=== PATIENT | male | born 1960 | race Caucasian/White ===

== ENCOUNTER → 2019-03-23 15:13 | Outpatient (BNVA) | payer MEDICARE, SELFPAY | PROVIDERS: Family Provider Nurse Practitioner; PCP Nurse Practitioner; Visit Provider Nurse Practitioner | DX: E11.8 Type 2 diabetes mellitus with unspecified complications (principal); J45.909 Unspecified asthma, uncomplicated; I10 Essential (primary) hypertension; E55.9 Vitamin D deficiency, unspecified; F41.9 Anxiety disorder, unspecified; N52.9 Male erectile dysfunction, unspecified; Z79.4 Long term (current) use of insulin | CPT/HCPCS: 80053; 81003; 83036 ==

== ENCOUNTER → 2019-04-05 09:30 | Outpatient (BNVA) | payer MEDICARE, SELFPAY | PROVIDERS: Family Provider Nurse Practitioner; PCP Nurse Practitioner; Visit Provider Nurse Practitioner | DX: J45.909 Unspecified asthma, uncomplicated (principal) | CPT/HCPCS: 71046 ==

== ENCOUNTER → 2019-07-03 12:03 | Outpatient (BNVA) | payer MEDICARE, SELFPAY | PROVIDERS: Family Provider Nurse Practitioner; PCP Nurse Practitioner; Visit Provider Nurse Practitioner | DX: E11.8 Type 2 diabetes mellitus with unspecified complications (principal); Z79.4 Long term (current) use of insulin; I10 Essential (primary) hypertension; F41.9 Anxiety disorder, unspecified; N39.9 Disorder of urinary system, unspecified; Z12.5 Encounter for screening for malignant neoplasm of prostate; R79.89 Other specified abnormal findings of blood chemistry; N52.1 Erectile dysfunction due to diseases classified elsewhere | CPT/HCPCS: 80053; 80061; 81000; 81001; 82044; 83036; 83721; 84153 ==

== ENCOUNTER → 2019-08-25 11:19 | Outpatient (BNVA) | payer MEDICARE, SELFPAY | PROVIDERS: Family Provider Nurse Practitioner; PCP Nurse Practitioner; Visit Provider Nurse Practitioner | DX: F41.9 Anxiety disorder, unspecified (principal); E11.8 Type 2 diabetes mellitus with unspecified complications; I10 Essential (primary) hypertension; Z79.4 Long term (current) use of insulin; K21.9 Gastro-esophageal reflux disease without esophagitis; H65.90 Unspecified nonsuppurative otitis media, unspecified ear | CPT/HCPCS: 80053; 80061; 81000; 83036 ==

== ENCOUNTER → 2019-11-22 10:08 | Outpatient (BNVA) | payer MEDICARE, SELFPAY | PROVIDERS: Family Provider Nurse Practitioner; PCP Nurse Practitioner; Visit Provider Nurse Practitioner | DX: E11.69 Type 2 diabetes mellitus with other specified complication (principal); F41.9 Anxiety disorder, unspecified; Z79.4 Long term (current) use of insulin; E55.9 Vitamin D deficiency, unspecified | CPT/HCPCS: 80053; 80061; 81000; 83036 ==

== ENCOUNTER 2019-11-24 16:19 | Inpatient (IN) | payer MEDICARE, SELFPAY ==
[2019-11-24] VITALS (7 sets, daily range): BP systolic 95–133; BP diastolic 52–74; PULSE 65–102; RESP 16–95; TEMP 36.5–37.1; O2SAT 92–98; BMI 36.9
--- NOTE | 2019-11-24 16:41 | XR_ITS ---
WS: [id number] Portable AP upright chest, 11/24/2019 Clinical Data: chest pain Comparison: PA and lateral chest, 04/05/2019 Findings: No nodules, masses or effusions are seen. The heart is normal. The pulmonary vascularity is not increased. No pneumonia or pneumothorax is present. There are monitor leads on the chest wall. XR/XR chest 1V portable [id number] Impression: Negative chest.
--- NOTE | 2019-11-24 16:41 | ECG_ITS ---
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 Measurements Intervals [place] Rate: 98 P: 71 [place]: 182 QRS: 31 QRSD: 82 T: 30 QT: 335 QTc: 428 Interpretive Statements SINUS RHYTHM Compared to ECG 04/18/2015 20:10:11 T-wave abnormality no longer present Electronically Signed On 11-25-2019 16:59:48 CDT by Laurie Norwood M.D. [id number]
[2019-11-24 16:55] LABS: Basophils % 0.3 %; Eosinophils # 0.1 10^3/uL (0.0-0.8); Eosinophils % 0.7 %; Hematocrit 54.6 % (42.0-52.0); Hemoglobin 17.8 g/dL (11.7-16.6); Lymphocytes # 3.2 10^3/uL (0.8-4.8); Mean Corpuscular HGB Conc 32.6 g/dL (30.0-36.0); Mean Corpuscular Hemoglobin 30.2 pg (28.0-34.0); Mean Corpuscular Volume 92.5 fL (80-94); Mean Platelet Volume 12.1 fL (7.4-10.4); Neutrophils # 9.98 10^3/uL (1.8-7.7); Neutrophils % 69.7 %; Nucleated Red Blood Cells % 0 %; Platelet Count 173 10^3/cmm (130-400); Red Cell Distribution Width 12.8 % (12.1-15.1); White Blood Count 14.3 10^3/uL (4.0-10.0)
[2019-11-24 17:30] LABS: Alanine Aminotransferase 44 U/L (0-41); Albumin Level 4.5 g/dL (3.5-5.2); Alkaline Phosphatase 97 IU/L (40-130); Anion Gap 19.1 (5-19); Aspartate Amino Transferase 69 U/L (0-40); Blood Urea Nitrogen 22 mg/dL (6-20); Calcium 9.3 mg/dL (8.5-10.5); Carbon Dioxide 18 mmol/L (22-29); Chloride 102 mmol/L (98-107); Globulin 2.9 g/dL (1.3-4.6); Glomerular Filtration Rate 51.9 mL/min (90-130); Glucose 202 mg/dL (65-115); Lipase 59 U/L (13-60); NT Pro B Type Natriuretic Pept 262 pg/mL (0-125); Osmolality Calculated 289 mOsm/kg (285-295); Potassium 4.1 mmol/L (3.5-5.1); Sodium 135 mmol/L (136-145); Total Bilirubin 0.5 mg/dL (0.15-1.2); Total Protein 7.4 g/dL (6.6-8.7)
[2019-11-24 18:09] LABS: Troponin(5th) Baseline 247 ng/L (0-15)
[2019-11-24 18:29] LABS: Add Urine Microscopic? NO
--- NOTE | 2019-11-24 18:41 | ECG_ITS ---
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 Measurements Intervals [place] Rate: 81 P: 74 [place]: 191 QRS: 36 QRSD: 93 T: 62 QT: 354 QTc: 412 Interpretive Statements SINUS RHYTHM Compared to ECG 11/24/2019 16:21:34 No significant changes Electronically Signed On 11-25-2019 17:03:01 CDT by Laurie Norwood M.D. [id number]
[2019-11-24 18:44] LABS: Bilirubin Urine Neg (Negative); Blood Urine Neg (Negative); Glucose Urine UA 4+ (Normal); Ketones Urine Negative (Negative); Leukocyte Esterase Urine Negative (Negative); Nitrate Urine Negative (Negative); Protein Urine Neg (Negative); Urine Appearance Clear (CLEAR); Urine Color Yellow (Yellow); Urobilinogen Urine Norm (Negative); pH Urine 5 (5-7)
[2019-11-24] MEDS: enoxaparin 120 mg/0.8 mL Syringe 110 MG SUBCUT (19:23)
[2019-11-24 19:50] LABS: Troponin 5 2HR 276.4 ng/L (0-15); Troponin 5 2HR Delta 29.4 ABS# (0-10)
--- NOTE | 2019-11-24 20:19 | P.HP_ITS ---
Providers/Chief Complaint Primary Care Provider: SURAJ Otoole Chief Complaint: CP History of Present Illness Vitaliy Mireles is a 59 year old male past medical history of hypertension, diabetes, came in with chief complaint of, substernal squeezeing chest pain, started yesterday night, worsened with exertion, radiating to left arm, relieved with rest, associated with nausea and diaphoresis. He decided to come to the as the chest pain was bothering him and he felt as if he is having a heart attack.On review of system he denies any fever cough, shortness of breath, headache, blurred vision, abdominal pain, constipation, diarrhea, urinary complaint. Baseline troponin: 247, 2-hour: 276 , with a delta of: 29.4 Baseline EKG: Normal sinus rhythm. X-ray chest: No nodules, masses or effusions are seen. The heart is normal. The pulmonary vascularity is not increased. No pneumonia or pneumothorax is present. Review of Systems General: Reports: 10 or more systems reviewed and unremarkable except in HPI and below Const: Denies: fever(s), chills, body aches, change in appetite or diaphoresis Card: Denies: palpitations, edema, swelling of feet/ankles, dyspnea on exertion, orthopnea or leg pain with exertion Resp: Denies: productive cough, wheezing or pain on inspiration GI: Denies: abdominal pain, nausea, vomiting, diarrhea or constipation : Denies: flank pain or difficulty urinating Musc: Denies: back pain, extremity pain or extremity swelling Neuro: Denies: headache(s), difficulty walking or confusion Medications/Allergies Home Medications Medication Instructions Recorded Confirmed Last Taken Type multivitamin 1 tab PO DAILY 07/03/19 11/24/19 11/24/19 History canagliflozin 100 mg tablet 100 mg PO QAM #90 tab 08/25/19 11/24/19 11/24/19 Rx testosterone cypionate 200 mg/mL 200 mg IM .weekly #10 ml 10/05/19 11/24/19 Unknown Rx intramuscular oil doxepin 25 mg capsule 25 mg PO TID #90 cap 11/22/19 11/24/19 11/24/19 Rx meclizine 25 mg tablet 25 mg PO DAILY #90 tab 11/22/19 11/24/19 11/24/19 Rx sucralfate 1 gram tablet 1 gm PO BID #180 tab 11/22/19 11/24/19 11/24/19 Rx venlafaxine 150 mg 150 mg PO QAM #90 cap 11/22/19 11/24/19 11/24/19 Rx capsule,extended release 24 hr Lidoderm See Rx Instructions .ROUTE .COMPLEX 11/24/19 11/24/19 Unknown History Lipitor 40 mg PO DAILY 11/24/19 11/24/19 11/24/19 History Viagra 100 mg PO DAILY PRN 11/24/19 11/24/19 Unknown History aspirin 162 mg PO DAILY 11/24/19 11/24/19 11/24/19 History candesartan 32 mg PO DAILY 11/24/19 11/24/19 11/24/19 History insulin degludec [Tresiba 20 unit SUBCUT DAILY 11/24/19 11/24/19 11/24/19 History FlexTouch U-100] metformin 2,000 mg PO DAILY 11/24/19 11/24/19 11/24/19 History Allergies Allergy/AdvReac Type Severity Reaction Status Date / Time No Known Allergies Allergy Verified 11/24/19 17:06 PFSH Acute PFSH: Medical History Anxiety Asthmatic bronchitis Controlled type 2 diabetes mellitus with complication, with long-term current use of insulin Gastric reflux Hypertension Mixed hyperlipidemia Vitamin D deficiency Surgical History History of arthroscopic surgery of shoulder right 3 surgeries left 1 History of tonsillectomy and adenoidectomy Status post routine circumcision Family History Mother , at age 83 Diabetes Hypertension Heart disease Brother Diabetes Father , at age 89 Sepsis Denies family history of Clotting disorder Psychiatric illness Chronic kidney disease (CKD) Social History Smoking and tobacco status: former smoker Smoking risk assessment/counseling performed?: No Alcohol intake: current Alcohol intake frequency: holidays/special occasions only Desire information about alcohol rehabilitation?: No Counseling given: No Desire information about substance/drug rehabilitation?: No Counseling given: No Adopted: No Caregiver/support person: No Lives independently: Yes Household members: spouse Housing: House Marital status: Number of children: 2 Number of grandchildren: 9 service: No Current occupational status: disabled Pets and animals: Yes Pets & animals: dog(s) History of recent travel: No Sexually active: Yes Current gender identity: Male Vitals/I&O/Wt Last Vital Signs Temp 98.8 F 11/24/19 16:30 Pulse 81 11/24/19 19:26 Resp 17 11/24/19 19:26 BP 133/64 11/24/19 19:26 Pulse Ox 94 11/24/19 19:26 Weight last 48 hrs Weight 113.398 kg Physical Exam Const: COMMON NORMALS: patient oriented x3 HENMT: COMMON NORMALS: normocephalic, atraumatic, hearing grossly normal bilaterally and external ears normal HEAD & SCALP: normocephalic and atraumatic EXTERNAL EAR: Yes external ears normal Eye: COMMON NORMALS: no scleral icterus GENERAL EYE: appearance normal, both eyes and all related structures Chest: COMMONS NORMALS: normal inspection of the chest and normal palpation of entire chest wall CHEST: Yes Symmetrical chest wall rise Resp: COMMON NORMALS: normal respiratory effort, No retractions, No use of accessory muscles and clear to auscultation bilaterally EFFORT & INSPECTION: Yes symmetric chest movement AUSCULTATION: clear to auscultation bilaterally Cardio: COMMON NORMALS: regular rate, regular rhythm, S1 normal heart sound present, S2 normal heart sound present, No gallops present (Cardio), No murmurs present (Cardio), No rub (Cardio) and Peripheral pulses 2+ throughout RATE: regular rate RHYTHM: regular rhythm HEART SOUNDS: S1 normal heart sound present and S2 normal heart sound present PERIPHERAL PULSES: Peripheral puls es 2+ throughout GI: COMMON NORMALS: Normal to inspection, nondistended, normoactive bowel sounds present, Soft to palpation, non-tender, No hepatosplenomegaly present and no masses AUSCULTATION: Yes normoactive bowel sounds PALPATION: Yes Soft to palpation and Yes No hepatosplenomegaly present RECTAL EXAM: Yes deferred Extremity: COMMON NORMALS: no clubbing, cyanosis or edema and no pedal edema Neuro: COMMON NORMALS: patient oriented x3 Data : 11/24/19 16:40 11/24/19 16:40 A&P Assessment and plan (1) NSTEMI (non-ST elevated myocardial infarction): 59 year old male past medical history of hypertension, diabetes, came in with chief complaint of, substernal squeezeing chest pain, started yesterday night, worsened with exertion, radiating to left arm, relieved with rest, associated with nausea and diaphoresis. He decided to come to the as the chest pain was bothering him and he felt as if he is having a heart attack.On review of system he denies any fever cough, shortness of breath, headache, blurred vision, abdominal pain, constipation, diarrhea, urinary complaint. Baseline troponin: 247, 2-hour: 276 , with a delta of: 29.4 Baseline EKG: Normal sinus rhythm. X-ray chest: No nodules, masses or effusions are seen. The heart is normal. The pulmonary vascularity is not increased. No pneumonia or pneumothorax is present. Aspirin 325 mg x1 dose, thereafter aspirin 81 mg oral daily Plavix 300 Mg x1 dose Lipitor 80 mg oral daily Carvedilol 6.25 mg q12 h oral daily Serial EKG 2D echo Trend troponin N.p.o. Cardiology: Consult Possible cath in a.m. Status: Acute (2) Hypertension: Patient is on candesartan at home. We will hold that anticipating cath. Will start on carvedilol 6.25 every 12 hours daily. Status: Chronic Qualifiers: Hypertension type: essential hypertension Qualified Code(s): I10 - Essential (primary) hypertension (3) Controlled type 2 diabetes mellitus with complication, with long-term current use of insulin: Low-dose sliding scale insulin. Monitor fingerstick glucose. HbA1c. 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
--- NOTE | 2019-11-24 20:34 | PC.NURSE ---
fur tanner alrming, pt check reveals pt lying supine, face flushed, denying any pain or discomfort. Pt and does state pt has not eaten since breakfast and is diabetic. accucheck performed. BS 152. vo from hospitalist pt to remain NPO, start D5 1/2 and loading dose of ASA and plavix
--- NOTE | 2019-11-24 20:35 | USCV_ITS ---
Vitaliy Mireles Age: 59 Gender: M : 1960 Exam Date: 11/24/2019 21:22 Ordering Phys: Usman Davenport MD Technologist: Angela Belcher Exam Location: [facility] Indication: nstemi BP: 121 / 48 HR: 76 Rhythm: Sinus Technical Quality: Adequate MEASUREMENTS (Male / Female) Normal Values 2D ECHO LV Diastolic Diameter PLAX 3.5 cm 4.2 - 5.9 / 3.9 - 5.3 cm LV Systolic Diameter PLAX 2.6 cm LV Chamber Size 4.1 cm IVS Diastolic Thickness 1.4 cm 0.6 - 1.0 / 0.6 - 0.9 cm IVS Systolic Thickness 1.7 cm LVPW Diastolic Thickness 1.5 cm 0.6 - 1.0 / 0.6 - 0.9 cm LVPW Systolic Thickness 1.5 cm RV Chamber Size 3.8 cm LVOT Diameter 2.1 cm LV Ejection Fraction 2D Teich 49.6 % LV Ejection Fraction MOD 2C 40.9 % LV Ejection Fraction 2C AL 38.4 % LA Diameter 3.9 cm LA Width 3.5 cm LA Height 4.6 cm RA Width 3.7 cm RA Height 4.3 cm Aorta at Sinotubular Diameter 3.6 cm M-MODE LV Diastolic Diameter MM 5.6 cm 4.2 - 5.9 / 3.9 - 5.3 cm LV Systolic Diameter MM 3.8 cm LV Ejection Fraction MM Teich 60.4 % IVS Diastolic Thickness MM 1.1 cm 0.6 - 1.0 / 0.6 - 0.9 cm IVS Systolic Thickness MM 1.9 cm LVPW Diastolic Thickness MM 1.6 cm 0.6 - 1.0 / 0.6 - 0.9 cm LVPW Systolic Thickness MM 2.7 cm RV Diastolic Diameter MM 1.3 cm Aortic Annulus Diameter 3.4 cm LA Ao Ratio MM 1.1 MV E Point Septal Separation 0.5 cm DOPPLER AV Peak Velocity 129.0 cm/s LVOT Peak Velocity 76.0 cm/s AV Area Cont Eq vti 2.3 cm squared AV Area Cont Eq pk 2.0 cm squared MV Area PHT 6.3 cm squared Mitral E to A Ratio 1.0 MV E' Velocity 8.0 cm/s Mitral E to MV E' Ratio 10.3 Mitral E to LV E' Lateral Ratio 9.1 Mitral E to LV E' Septal Ratio 12.1 TR Peak Velocity 84.2 cm/s TR Peak Gradient 2.8 mmHg TR Mean Velocity 53.0 cm/s TR Mean Gradient 1.3 mmHg TR Velocity Time Integral 17.2 cm TV Peak E Velocity 68.0 cm/s Right Atrial Pressure 3.0 mmHg Pulmonary Artery Systolic Pressu 5.8 mmHg PV Peak Velocity 50.0 cm/s RV Acceleration Time 0.1 s RV Ejection Time 0.2 s RV AcT/ET 1.0 FINDINGS Left Ventricle Normal left ventricular size and systolic function, EF 60 %. No regional wall motion abnormalities. Right Ventricle The right ventricle is normal in size and function. Right Atrium The right atrium is normal in size. Left Atrium The left atrium is normal in size. Mitral Valve Thickened mitral valve. Aortic Valve No gross abnormalities noted Tricuspid Valve No gross abnormalities noted. Pulmonic Valve Not visualized well Pericardium Normal pericardium without effusion. Aorta Normal ascending aorta dimension. CONCLUSIONS Normal left ventricular size and systolic function, EF 60 %. No regional wall motion abnormalities. Thickened mitral valve. There is no pericardial effusion. There are no intracardiac masses. Technically somewhat difficult study because of poor apical window No previous study is available for comparison. Dr Laurie Norwood MD FACC (Electronically Signed) Final Date: 25 November 2019 09:17 S
[2019-11-24 20:45] LABS: Glucose Point of Care 152 mg/dL (70-110)
[2019-11-24] MEDS: aspirin 325 mg EC Tablet PO (21:57)
[2019-11-24] MEDS: carvedilol 6.25 mg Tablet PO (22:03)
[2019-11-24] MEDS: clopidogrel 300 mg Tablet PO (22:03)
[2019-11-24] MEDS: atorvastatin 40 mg Tablet 80 MG PO (22:03)
--- NOTE | 2019-11-24 22:04 | W.ED.CHESTPA ---
HPI - Chest Pain General: Chief Complaint: Chest Pain Stated Complaint: CP Time Seen by Provider: 11/24/19 16:20 Source: patient Mode of arrival: EMS Limitations: no limitations History of Present Illness: HPI narrative: 59-year-old gentleman with no prior cardiac history presents to the emergency department with complaints of left-sided chest pain that started sometime last night. Pain gradually worsened as the day progressed and especially worsened on exertion. Because the pain was worsening and he was affecting his functioning he called an ambulance and was given nitroglycerin and aspirin. Pain resolved after 3 nitroglycerin tablets. He is here to be evaluated. He is currently chest pain-free MD complaint: chest pain Onset (ago): hour(s) (15) Timing of current episode: constant and increasing Prior episodes: No Onset: during rest and awoke with symptoms Pain location: left chest Pain radiation: left arm Severity: severe Quality: heaviness Relieving factors: nitroglycerin Exacerbating factors: exertion Associated symptoms: Reports diaphoresis, dyspnea and nausea; Deny abdominal pain, fever(s), leg edema, palpitations, sense of impending doom, syncope or vomiting Treatment prior to arrival: aspirin and nitroglycerin Review of Systems General: Reports: 10 or more systems reviewed and unremarkable except in HPI and below Const: Reports: diaphoresis; Denies: fever(s) Eyes: Denies: change in vision or blurry vision ENMT: Denies: throat pain, enlarged tonsils, odynophagia, hoarseness, mouth pain or swelling of lips/tongue Card: Denies: palpitations or syncope Resp: Reports: dyspnea GI: Reports: nausea; Denies: abdominal pain or vomiting : Denies: flank pain, dysuria, urinary frequency, urinary urgency or urinary hesitancy Musc: Denies: neck pain, back pain or extremity swelling Skin/Breast: Denies: rash, pruritus or erythema Neuro: Denies: headache(s), numbness in extremities or weakness in extremities Endo: Denies: polyuria, polydipsia or tired all the time PFS ED PFSH: Medical History Anxiety Asthmatic bronchitis Controlled type 2 diabetes mellitus with complication, with long-term current use of insulin Gastric reflux Hypertension Mixed hyperlipidemia Vitamin D deficiency Surgical History History of arthroscopic surgery of shoulder right 3 surgeries left 1 History of tonsillectomy and adenoidectomy Status post routine circumcision Family History Mother , at age 83 Diabetes Hypertension Heart disease Brother Diabetes Father , at age 89 Sepsis Denies family history of Clotting disorder Psychiatric illness Chronic kidney disease (CKD) Social History Smoking and tobacco status: former smoker Smoking risk assessment/counseling performed?: No Alcohol intake: current Alcohol intake frequency: holidays/special occasions only Desire information about alcohol rehabilitation?: No Counseling given: No Desire information about substance/drug rehabilitation?: No Counseling given: No Adopted: No Caregiver/support person: No Lives independently: Yes Household members: spouse Housing: House Marital status: Number of children: 2 Number of grandchildren: 9 service: No Current occupational status: disabled Pets and animals: Yes Pets & animals: dog(s) History of recent travel: No Sexually active: Yes Current gender identity: Male Physical Exam Const: COMMON NORMALS: no acute distress, average body habitus, patient oriented x3, no limitations, healthy appearing, alert and well nourished HENMT: COMMON NORMALS: normocephalic, atraumatic and moist oral mucous membranes HEAD & SCALP: normocephalic and atraumatic Eye: COMMON NORMALS: Equal, round and reactive pupils present, EOMs intact bilaterally, conjunctivae normal and no scleral icterus CONJUNCTIVA: Yes conjunctivae normal PUPIL: Yes Equal, round and reactive pupils present Neck/C-Spine: COMMON NORMALS: no meningeal signs and no JVD Resp: COMMON NORMALS: normal respiratory effort, No retractions, No use of accessory muscles, clear to auscultation bilaterally and percussion normal AUSCULTATION: clear to auscultation bilaterally PERCUSSION: percussion normal Cardio: COMMON NORMALS: no JVD, regular rate, regular rhythm, S1 normal heart sound present, S2 normal heart sound present, No gallops present (Cardio), No clicks present (Cardio), No murmurs present (Cardio), No rub (Cardio) and Peripheral pulses 2+ throughout RATE: regular rate RHYTHM: regular rhythm HEART SOUNDS: S1 normal heart sound present and S2 normal heart sound present PERIPHERAL PULSES: Peripheral pulses 2+ throughout GI: COMMON NORMALS: Normal to inspection, nondistended, normoactive bowel sounds present, Soft to palpation, non-tender, No hepatosplenomegaly present, no masses and no bruits PALPATION: Yes Soft to palpation and Yes No hepatosplenomegaly present Extremity: COMMON NORMALS: normal to inspection, full ROM, capillary refill normal, no calf tenderness and no pedal edema Neuro: COMMON NORMALS: patient oriented x3 SENSORIUM/ORIENTATION: Yes alert MENINGEAL SIGNS: Yes no meningeal signs Skin: COMMON NORMALS: no rashes or lesions noted, no wounds, turgor normal, no jaundice, no petechiae and no mottling GENERAL SKIN EXAM: no rashes or lesions noted and turgor normal Course ED course: Patient with clinical features of a non-STEMI. Patient remained chest pain-free throughout his ED stay. Baseline troponin was critically elevated and the also has a significant 2-hour delta. He is given a dose of subcutaneous enoxaparin and admitted to the cardiac stepdown unit for further evaluation and management. Consultations: Consultation #1: , hospitalist. He kindly accepted the patient to his service. Time: 19:20 Vital Signs: Vital signs: Vital Signs Temperature 98.8 F 11/24/19 16:30 Pulse Rate 77 11/24/19 20:32 Respiratory Rate 18 11/24/19 20:32 Blood Pressure 125/74 11/24/19 20:32 Pulse Oximetry 92 11/24/19 20:32 MDM - Chest Pain MDM Narrative: Medical decision making narrative: 59-year-old gentleman with a non-STEMI. Vital signs stable throughout his ED stay. He was chest pain-free throughout his ED stay. He was given a dose of subcutaneous Lovenox 1 mg/kg and admitted to the cardiac stepdown unit for further evaluation and management Medical Records: Attestation: I reviewed the patient's medical records. Lab Data: Attestation: I reviewed the patient's lab results. Labs: Lab Results 11/24/19 11/24/19 11/24/19 Range/Units 16:40 16:40 16:40 WBC 14.3 H (4.0-10.0) 10^3/ uL RBC 5.90 H (4.1-5.3) 10^6/u L Hgb 17.8 H (11.7-16.6) g/dL Hct 54.6 H (42.0-52.0) % MCV 92.5 (80-94) fL MCH 30.2 (28.0-34.0) pg MCHC 32.6 (30.0-36.0) g/dL RDW 12.8 (12.1-15.1) % Plt Count 173 (130-400) 10^3/c mm MPV 12.1 H (7.4-10.4) fL Neut % (Auto) 69.7 % Lymph % (Auto) 22.0 % [place] % (Auto) 7.0 % Eos % (Auto) 0.7 % Baso % (Auto) 0.3 % Neut # (Auto) 9.98 H (1.8-7.7) 10^3/u L Lymph # (Auto) 3.2 (0.8-4.8) 10^3/u L [place] # (Auto) 1.0 H (0.2-0.9) 10^3/u L Eos # (Auto) 0.1 (0.0-0.8) 10^3/u L Baso # (Auto) 0.0 (0.0-0.1) 10^3/u L Nucleated RBC % (a uto) 0 % Nucleated RBCs # 0.0 /100WBC Sodium 135 L (136-145) mmol/L Potassium 4.1 (3.5-5.1) mmol/L Chloride 102 (98-107) mmol/L Carbon Dioxide 18 L (22-29) mmol/L Anion Gap 19.1 H (5-19) BUN 22 H (6-20) mg/dL Creatinine 1.4 H (0.7-1.2) mg/dL GFR Calculation 51.9 L (90-130) mL/min Glucose 202 H (65-115) mg/dL Calculated Osmolal ity 289 (285-295) mOsm/k g Calcium 9.3 (8.5-10.5) mg/dL Total Bilirubin 0.5 (0.15-1.2) mg/dL AST 69 H (0-40) U/L ALT 44 H (0-41) U/L Alkaline Phosphata se 97 (40-130) IU/L Troponin T Baselin e 247 H* (0-15) ng/L Troponin T 120 Min [place] (0-15) ng/L Delta Troponin T (0-10) ABS# NT-Pro-B Natriuret Pep 262 H (0-125) pg/mL Total Protein 7.4 (6.6-8.7) g/dL Albumin 4.5 (3.5-5.2) g/dL Globulin 2.9 (1.3-4.6) g/dL Lipase 59 (13-60) U/L Urine Color (Yellow) Urine Appearance (CLEAR) Urine pH (5-7) Ur Specific Gravit y (1.005-1.030) Urine Protein (Negative) Urine Glucose (UA) (Normal) Urine Ketones (Negative) Urine Blood (Negative) Urine Nitrate (Negative) Urine Bilirubin (Negative) Urine Urobilinogen (Negative) mg/dL Ur Leukocyte [place] (Negative) 11/24/19 11/24/19 Range/Units 18:09 18:44 WBC (4.0-10.0) 10^3/ uL RBC (4.1-5.3) 10^6/u L Hgb (11.7-16.6) g/dL Hct (42.0-52.0) % MCV (80-94) fL MCH (28.0-34.0) pg MCHC (30.0-36.0) g/dL RDW (12.1-15.1) % Plt Count (130-400) 10^3/c mm MPV (7.4-10.4) fL Neut % (Auto) % Lymph % (Auto) % [place] % (Auto) % Eos % (Auto) % Baso % (Auto) % Neut # (Auto) (1.8-7.7) 10^3/u L Lymph # (Auto) (0.8-4.8) 10^3/u L [place] # (Auto) (0.2-0.9) 10^3/u L Eos # (Auto) (0.0-0.8) 10^3/u L Baso # (Auto) (0.0-0.1) 10^3/u L Nucleated RBC % (a uto) % Nucleated RBCs # /100WBC Sodium (136-145) mmol/L Potassium (3.5-5.1) mmol/L Chloride (98-107) mmol/L Carbon Dioxide (22-29) mmol/L Anion Gap (5-19) BUN (6-20) mg/dL Creatinine (0.7-1.2) mg/dL GFR Calculation (90-130) mL/min Glucose (65-115) mg/dL Calculated Osmolal ity (285-295) mOsm/k g Calcium (8.5-10.5) mg/dL Total Bilirubin (0.15-1.2) mg/dL AST (0-40) U/L ALT (0-41) U/L Alkaline Phosphata se (40-130) IU/L Troponin T Baselin e (0-15) ng/L Troponin T 120 Min [place] 276.4 H (0-15) ng/L Delta Troponin T 29.4 H* (0-10) ABS# NT-Pro-B Natriuret Pep (0-125) pg/mL Total Protein (6.6-8.7) g/dL Albumin (3.5-5.2) g/dL Globulin (1.3-4.6) g/dL Lipase (13-60) U/L Urine Color Yellow (Yellow) Urine Appearance Clear (CLEAR) Urine pH 5 (5-7) Ur Specific Gravit y 1.020 (1.005-1.030) Urine Protein Neg (Negative) Urine Glucose (UA) 4+ H (Normal) Urine Ketones Negative (Negative) Urine Blood Neg (Negative) Urine Nitrate Negative (Negative) Urine Bilirubin Neg (Negative) Urine Urobilinogen Norm (Negative) mg/dL Ur Leukocyte [place] Negative (Negative) Imaging Data^: CXR: Radiologist's impression: [address] [address] XRay Report Signed Patient: Vitaliy Mireles #: [id number] : 1960Acct#:[id number] Age/Sex: 59 / MADM Date: 11/24/19 Loc: ERRoom/Bed: Attending Dr: Ordering Provider/Ordering MD: Kenneth Hernandez [place] [facility] [place]: 11/24/19 Procedure(s): XR chest 1V portable [id number] Accession Number(s): [id number] Report Number: [id number] WS: [id number] Portable AP upright chest, 11/24/2019 Clinical Data: chest pain Comparison: PA and lateral chest, 04/05/2019 Findings: No nodules, masses or effusions are seen. The heart is normal. The pulmonary vascularity is not increased. No pneumonia or pneumothorax is present. There are monitor leads on the chest wall. XR/XR chest 1V portable [id number] Impression: Negative chest. Dictated By:Andria Gray MD Signed By:Andria Gray MDSigned Date/Time:11/24/191650 DD/ 49 EKG Data^: EKG 1: Attestation: I personally reviewed and interpreted this EKG as follows: EKG interpretation date: 11/24/19 EKG interpretation time: 16:21 Prior EKG tracings: not available for review Interpretation: Normal sinus rhythm. Heart rate [address] changes. No STEMI. EKG 2: Attestation: I personally reviewed and interpreted this EKG as follows: EKG interpretation date: 11/24/19 EKG interpretation time: 18:35 Prior EKG tracings: available for review Interpretation: Normal sinus rhythm. Heart rate [address] changes. No STEMI. EKG 3: Attestation: I personally reviewed and interpreted this EKG as follows: EKG interpretation date: 11/24/19 EKG interpretation time: 20:20 Prior EKG tracings: available for review Interpretation: Unchanged from earlier EKGs. Heart rate 86 bpm. Normal sinus rhythm. No ST changes Discharge Plan Discharge Patient Disposition: Admitted As Inpatient Admit Provider: Hari Modi Clinical Impression: NSTEMI (non-ST elevated myocardial infarction) Condition: Stable Coding Level of Care Code ED Mathematics Professor for Cheli Davalos
--- NOTE | 2019-11-24 22:41 | ECG_ITS ---
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 Measurements Intervals [place] Rate: 86 P: 67 VA: 185 QRS: 35 QRSD: 92 T: 67 QT: 342 QTc: 411 Interpretive Statements SINUS RHYTHM Compared to ECG 11/24/2019 18:35:24 No significant changes Electronically Signed On 11-25-2019 17:03:14 CDT by Laurie Norwood M.D. [id number]
[2019-11-24 23:08] LABS: Troponin 5 6HR 338.9 ng/L (0-15); Troponin 5 6HR Delta 91.9 ng/L (0-12)
[2019-11-25] VITALS (57 sets, daily range): BP systolic 100–142; BP diastolic 65–91; PULSE 60–88; RESP 18–22; TEMP 36.8; O2SAT 90–99
--- NOTE | 2019-11-25 00:52 | PC.NURSE ---
Patient oxygen saturating 86 to 87% on room air while sleeping. Patient put on 2L via nasal cannula and oxygen came up to 94%.
[2019-11-25 04:09] LABS: Basophils % 0.3 %; Eosinophils # 0.2 10^3/uL (0.0-0.8); Eosinophils % 1.4 %; Hematocrit 53.7 % (42.0-52.0); Hemoglobin 17.1 g/dL (11.7-16.6); Lymphocytes # 3.8 10^3/uL (0.8-4.8); Lymphocytes % 29.6 %; Mean Corpuscular HGB Conc 31.8 g/dL (30.0-36.0); Mean Corpuscular Hemoglobin 30.2 pg (28.0-34.0); Mean Corpuscular Volume 94.7 fL (80-94); Mean Platelet Volume 11.9 fL (7.4-10.4); Monocytes % 7.8 %; Neutrophils # 7.68 10^3/uL (1.8-7.7); Neutrophils % 60.5 %; Nucleated Red Blood Cells % 0 %; Platelet Count 154 10^3/cmm (130-400); Red Blood Count 5.67 10^6/uL (4.1-5.3); Red Cell Distribution Width 13.1 % (12.1-15.1); White Blood Count 12.7 10^3/uL (4.0-10.0)
[2019-11-25 04:21] LABS: INR 0.98 (0.8-1.2)
[2019-11-25 04:30] LABS: Chol HDL Ratio 3.28 mg/dL (1.0-5.00); Cholesterol 95 mg/dL (0-200); HDL Cholesterol 29 mg/dL (60-100); LDL Cholesterol Calculated 28 mg/dL (50-129); LDL HDL Ratio 0.97 RATIO (0.00-3.22); Triglycerides 190 mg/dL (0-150)
[2019-11-25 04:39] LABS: Alanine Aminotransferase 39 U/L (0-41); Albumin Level 4.1 g/dL (3.5-5.2); Alkaline Phosphatase 102 IU/L (40-130); Anion Gap 14.5 (5-19); Aspartate Amino Transferase 87 U/L (0-40); Blood Urea Nitrogen 25 mg/dL (6-20); Calcium 9.4 mg/dL (8.5-10.5); Carbon Dioxide 25 mmol/L (22-29); Chloride 101 mmol/L (98-107); Creatinine Clr Calc Pharmacy 66.8694; Globulin 2.9 g/dL (1.3-4.6); Glomerular Filtration Rate 47.9 mL/min (90-130); Glucose 146 mg/dL (65-115); Magnesium 2.3 mg/dL (1.7-2.3); Osmolality Calculated 289 mOsm/kg (285-295); Potassium 4.5 mmol/L (3.5-5.1); Sodium 136 mmol/L (136-145); Thyroid Stimulating Hormone 1.11 uIU/mL (0.27-4.20); Total Bilirubin 0.6 mg/dL (0.15-1.2)
[2019-11-25 06:23] LABS: Glucose Point of Care 131 mg/dL (70-110)
--- NOTE | 2019-11-25 07:17 | PC.NURSE ---
End of shift: Patient has rested well this shift. Patient has denied any pain. Patient vitals remain stable. Patient remains on 2L nasal cannula. Patient is alert and oriented.
[2019-11-25] MEDS: sodium chloride 0.9% 1,000 ML 125 ML IV (09:35)
[2019-11-25] MEDS: carvedilol 6.25 mg Tablet PO ×2 (09:36→20:20)
--- NOTE | 2019-11-25 10:16 | P.CONIM_ITS ---
Providers/Reason For Consult Consulting Physican/Specialty*: АНДРЕЙ Norwood MD/cardiology Reason for Consult*: Patient with chest pain and elevated troponin T Attending Physician: Usman Davenport MD Primary Care Provider: SURAJ Otoole History of Present Illness History of Present Illness Vitaliy Mireles is a 59 year old male is admitted to hospital through the emergency room, where he presented with complaints of recurrent episodes of prolonged chest pains. He was found to have elevated troponin T. Cardiology consult is requested for further cardiac evaluation and recommendations. Mr. Mireles is known to have diabetes and dyslipidemia for many years. He apparently has been in his baseline state of health up until 24th evening when he had the first episode of chest pain. The pain was mid substernal, radiating across the chest and also to the left shoulder. It was 7/10 in intensity. He had some associated shortness of breath and nausea. The pain middle lasted for 4 to 5 hours. Then the symptoms gradually subsided. Yesterday morning when he woke up, was feeling okay. Then he went out to work and was doing some shoveling. The pain came back at that time. It was more or less similar pain with a slightly more intensity. Because of the recurrent episodes of chest pains, he decided to come to the hospital. The pain middle lasted for a total of 6 to 7 hours. At the time of my examination, he is pain-free. His baseline troponin T was in the 200 range at the time of the ER visit. The repeat troponin T in 2 hours had a delta of 29. Patient has no fever, chills or cough. No palpitation, dizziness or syncopal episodes. No other specific complaints. He has no previous history for coronary artery disease, myocardial infarction or congestive heart failure. No history for severe peripheral artery disease. He used to smoke 1 pack a day for 8 years or so which he quit 18 years ago. He also has a history of alcohol abuse, which he quit 10 years ago. No history for any substance abuse. 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 Because of some shoulder injury, he is currently disabled. His mother had multiple mini strokes. Diabetes runs in the family. No significant family history for any premature atherosclerotic heart disease Review of Systems Narrative: CONSTITUTIONAL: No fever or chills. EYES: No blurring of vision or other visual disturbances lately. ENT: No hoarseness of voice, auditory disturbances or sore throat. CARDIOVASCULAR: As mentioned above. RESPIRATORY: No significant cough. GASTROINTESTINAL: No hematemesis or melena. GENITOURINARY: No dysuria or hematuria. INTEGUMENTARY: No skin rashes or history of skin cancer. NEURO: No transient ischemic attacks or amaurosis. PSYCHIATRIC: No history of psychosis or major depression. HEMATOLOGIC: No bleeding disorders or significant anemia. ENDOCRINE: History of type 2 diabetes as mentioned above. MUSCULOSKELETAL: No recent joint pain or swelling. ALLERGY/IMMUNOLOGY: As mentioned above. Meds/Allergies Home Medications and Allergies Home Medications Medication Instructions Recorded Confirmed Last Taken Type multivitamin 1 tab PO DAILY 07/03/19 11/24/19 11/24/19 History canagliflozin 100 mg tablet 100 mg PO QAM #90 tab 08/25/19 11/24/19 11/24/19 Rx testosterone cypionate 200 mg/mL 200 mg IM .weekly #10 ml 10/05/19 11/24/19 Unknown Rx intramuscular oil doxepin 25 mg capsule 25 mg PO TID #90 cap 11/22/19 11/24/19 11/24/19 Rx meclizine 25 mg tablet 25 mg PO DAILY #90 tab 11/22/19 11/24/19 11/24/19 Rx sucralfate 1 gram tablet 1 gm PO BID #180 tab 11/22/19 11/24/19 11/24/19 Rx venlafaxine 150 mg 150 mg PO QAM #90 cap 11/22/19 11/24/19 11/24/19 Rx capsule,extended release 24 hr Lidoderm See Rx Instructions .ROUTE .COMPLEX 11/24/19 11/24/19 Unknown History Lipitor 40 mg PO DAILY 11/24/19 11/24/19 11/24/19 History Viagra 100 mg PO DAILY PRN 11/24/19 11/24/19 Unknown History aspirin 162 mg PO DAILY 11/24/19 11/24/19 11/24/19 History candesartan 32 mg PO DAILY 11/24/19 11/24/19 11/24/19 History insulin degludec [Tresiba 20 unit SUBCUT DAILY 11/24/19 11/24/19 11/24/19 History FlexTouch U-100] metformin 2,000 mg PO DAILY 11/24/19 11/24/19 11/24/19 History Allergies Allergy/AdvReac Type Severity Reaction Status Date / Time No Known Allergies Allergy Verified 11/24/19 17:06 Current Medications Current Medications Generic Name Dose Route Start Last Admin Trade Name Tanisha PRN Reason Stop Dose Admin Carvedilol 6.25 mg 11/24/19 20:30 11/25/19 09:36 Coreg PO 6.25 mg Q12H CALOS Administration Sodium Chloride 1,000 mls @ 125 mls/hr 11/25/19 09:30 11/25/19 09:35 Sodium Chloride 0.9% IV 125 mls/hr .Q8H CALOS Administration Insulin Aspart 0 unit 11/24/19 21:00 11/25/19 07:25 Novolog SUBCUT Not Given WM&BEDTIME CALOS Protocol PFSH Acute PFSH: Medical History Anxiety Asthmatic bronchitis Controlled type 2 diabetes mellitus with complication, with long-term current use of insulin Gastric reflux Hypertension Mixed hyperlipidemia Vitamin D deficiency Surgical History History of arthroscopic surgery of shoulder right 3 surgeries left 1 History of tonsillectomy and adenoidectomy Status post routine circumcision Family History Mother , at age 83 Diabetes Hypertension Heart disease Brother Diabetes Father , at age 89 Sepsis Denies family history of Clotting disorder Psychiatric illness Chronic kidney disease (CKD) Social History Smoking and tobacco status: former smoker Smoking risk assessment/counseling performed?: No Alcohol intake: current Alcohol intake frequency: holidays/special occasions only Desire information about alcohol rehabilitation?: No Counseling given: No Desire information about substance/drug rehabilitation?: No Counseling given: No Adopted: No Caregiver/support person: No Lives independently: Yes Household members: spouse Housing: House Marital status: Number of children: 2 Number of grandchildren: 9 service: No Current occupational status: disabled Pets and animals: Yes Pets & animals: dog(s) History of recent travel: No Sexually active: Yes Current gender identity: Male Vitals/I&O/Wt Last Vital Signs Temp 98.3 F 11/25/19 04:00 Pulse 66 11/25/19 04:00 Resp 22 H 11/25/19 04:00 BP 101/67 11/25/19 04:00 Pulse Ox 99 11/25/19 04:00 Weight last 48 hrs Weight 250 lb Physical Exam Narrative: EXAM NARRATIVE: GENERAL: The patient is alert and oriented times three. Not in any acute distress. Mild obesity HEENT: No significant pallor, icterus or lymphadenopathy. The pupils are reactant to light. Oral cavity: There are no mucous membrane lesions. Funduscopic examination: The fundus is not visualized NECK: Trachea appears to be central. No masses noted. No JVD or thyromegaly appreciated. No carotid bruit. RESPIRATORY: Chest is symmetrical. No intercostals muscle retraction or any accessory muscle activation. There is no chest wall tenderness. Breath sounds are heard bilaterally. No rales or rhonchi heard. No evidence of any consolidation. BREASTS: Deferred. HEART: PMI could not be palpated. No palpable precordial events. S1 and S2 are normal. No S3 or S4 heard. No pericardial rub or any click heard. ABDOMEN: No vessel pulsations or distention. No tenderness. No organomegaly appreciated. No abdominal bruit. Bowel sounds are normally heard. : Deferred. RECTAL: Deferred. LYMPHATIC: No lymphadenopathy noted in the neck or groin. EXTREMITIES: No edema or cyanosis. No clubbing. The pulses are symmetrical bilaterally. The radial, femoral, dorsalis pedis and the posterior tibial pulses are palpated and found to be in good volume and amplitude. MUSCULOSKELETAL: No acute joint deformities or swelling. The right shoulder mobility is somewhat limited. Patient had a multiple surgical intervention of the shoulder. SKIN: There are no significant scars or skin rash noted. NEUROPSYCHIATRIC: The patient is alert and oriented x3. Appears to be in a good mood. The higher functions are grossly within normal limits. No tremors or rigidity noted. Data Labs: Other Labs: Laboratory Last Values WBC 12.7 10^3/uL (4.0 -10.0) H 11/25/19 03:33 RBC 5.67 10^6/uL (4.1 -5.3) H 11/25/19 03:33 Hgb 17.1 g/dL (11.7-1 6.6) H 11/25/19 03:33 Hct 53.7 % (42.0-52.0 ) H 11/25/19 03:33 MCV 94.7 fL (80-94) H 11/25/19 03:33 MCH 30.2 pg (28.0-34. 0) 11/25/19 03:33 MCHC 31.8 g/dL (30.0-3 6.0) 11/25/19 03:33 RDW 13.1 % (12.1-15.1 ) 11/25/19 03:33 Plt Count 154 10^3/cmm (130 -400) 11/25/19 03:33 MPV 11.9 fL (7.4-10.4 ) H 11/25/19 03:33 Neut % (Auto) 60.5 % 11/25/19 03:33 Lymph % (Auto) 29.6 % 11/25/19 03:33 [place] % (Auto) 7.8 % 11/25/19 03:33 Eos % (Auto) 1.4 % 11/25/19 03:33 Baso % (Auto) 0.3 % 11/25/19 03:33 Neut # (Auto) 7.68 10^3/uL (1.8 -7.7) 11/25/19 03:33 Lymph # (Auto) 3.8 10^3/uL (0.8- 4.8) 11/25/19 03:33 [place] # (Auto) 1.0 10^3/uL (0.2- 0.9) H 11/25/19 03:33 Eos # (Auto) 0.2 10^3/uL (0.0- 0.8) 11/25/19 03:33 Baso # (Auto) 0.0 10^3/uL (0.0- 0.1) 11/25/19 03:33 Nucleated RBC % (a uto) 0 % 11/25/19 03:33 Nucleated RBCs # 0.0 /100WBC 11/25/19 03:33 PT 13.30 SECONDS (12 .1-14.9) 11/25/19 03:33 INR 0.98 (0.8-1.2) 11/25/19 03:33 APTT 35.0 SECONDS (23. 9-36.7) 11/25/19 03:33 Sodium 136 mmol/L (136-1 45) 11/25/19 03:33 Potassium 4.5 mmol/L (3.5-5 .1) 11/25/19 03:33 Chloride 101 mmol/L (98-10 7) 11/25/19 03:33 Carbon Dioxide 25 mmol/L (22-29) 11/25/19 03:33 Anion Gap 14.5 (5-19) 11/25/19 03:33 BUN 25 mg/dL (6-20) H 11/25/19 03:33 Creatinine 1.5 mg/dL (0.7-1. 2) H 11/25/19 03:33 GFR Calculation 47.9 mL/min (90-1 30) L 11/25/19 03:33 Glucose 146 mg/dL (65-115 ) H 11/25/19 03:33 POC Glucose 131 mg/dL (70-110 ) 11/25/19 06:16 Calculated Osmolal ity 289 mOsm/kg (285- 295) 11/25/19 03:33 Calcium 9.4 mg/dL (8.5-10 .5) 11/25/19 03:33 Magnesium 2.3 mg/dL (1.7-2. 3) 11/25/19 03:33 Total Bilirubin 0.6 mg/dL (0.15-1 .2) 11/25/19 03:33 AST 87 U/L (0-40) H 11/25/19 03:33 ALT 39 U/L (0-41) 11/25/19 03:33 Alkaline Phosphata se 102 IU/L (40-130) 11/25/19 03:33 Troponin T Baselin e 247 ng/L (0-15) H* 11/24/19 16:40 Troponin T 120 Min [place] 276.4 ng/L (0-15) H 11/24/19 18:44 Delta Troponin T 29.4 ABS# (0-10) H* 11/24/19 18:44 Troponin T Hi Sens 6Hr 338.9 ng/L (0-15) H 11/24/19 22:35 Troponin T Hi Sens 6Hr Delta 91.9 ng/L (0-12) H* 11/24/19 22:35 NT-Pro-B Natriuret Pep 262 pg/mL (0-125) H 11/24/19 16:40 Total Protein 7.0 g/dL (6.6-8.7 ) 11/25/19 03:33 Albumin 4.1 g/dL (3.5-5.2 ) 11/25/19 03:33 Globulin 2.9 g/dL (1.3-4.6 ) 11/25/19 03:33 Triglycerides 190 mg/dL (0-150) H 11/25/19 03:33 Cholesterol 95 mg/dL (0-200) 11/25/19 03:33 LDL Cholesterol, C alc 28 mg/dL (50-129) L 11/25/19 03:33 HDL Cholesterol 29 mg/dL (60-100) L 11/25/19 03:33 LDL/HDL Ratio 0.97 RATIO (0.00- 3.22) 11/25/19 03:33 Cholesterol/HDL Ra priti 3.28 mg/dL (1.0-5 .00) 11/25/19 03:33 Lipase 59 U/L (13-60) 11/24/19 16:40 TSH 1.11 uIU/mL (0.27 -4.20) 11/25/19 03:33 Urine Color Yellow (Yellow) 11/24/19 18:09 Urine Appearance Clear (CLEAR) 11/24/19 18:09 Urine pH 5 (5-7) 11/24/19 18:09 Ur Specific Gravit y 1.020 (1.005-1.0 30) 11/24/19 18:09 Urine Protein Neg (Negative) 11/24/19 18:09 Urine Glucose (UA) 4+ (Normal) H 11/24/19 18:09 Urine Ketones Negative (Negati ve) 11/24/19 18:09 Urine Blood Neg (Negative) 11/24/19 18:09 Urine Nitrate Negative (Negati ve) 11/24/19 18:09 Urine Bilirubin Neg (Negative) 11/24/19 18:09 Urine Urobilinogen Norm mg/dL (Negat cindy) 11/24/19 18:09 Ur Leukocyte Alba ase Negative (Negati ve) 11/24/19 18:09 The echocardiogram from 11/24/2019 revealed Normal left ventricular size and systolic function, EF 60 %. No regional wall motion abnormalities. Thickened mitral valve. There is no pericardial effusion. There are no intracardiac masses. Technically somewhat difficult study because of poor apical window No previous study is available for comparison. The EKG on 11/24/2019 revealed Normal sinus rhythm with normal ST-T's. Chest x-ray revealed Borderline cardiac silhouette with no lung infiltrates. No acute pathology noted. A&P Assessment and plan (1) NSTEMI (non-ST elevated myocardial infarction): Patient is clinical features are consistent with unstable angina, complicated with non-ST elevation myocardial infarction. Hemodynamically seems to be stable. The EKG is unremarkable. Echocardiogram also essentially unremarkable. In view of the patient's multiple risk factors and the clinical presentation, most likely he has underlying significant coronary artery disease. This needs to be further evaluated. He may be treated with subcu Lovenox, Plavix, aspirin, beta-mic, statin and other current medications. Status: Acute (2) Unstable angina: Patient is on nitrates. Which may be continued. Other symptomatic measures may be continued. Status: Acute (3) Mixed hyperlipidemia: May continue on the statin drug. Status: Chronic (4) Hypertension: Currently normotensive. Current medications may be continued. Status: Chronic Qualifiers: Hypertension type: essential hypertension Qualified Code(s): I10 - Essential (primary) hypertension (5) Controlled type 2 diabetes mellitus with complication, with long-term current use of insulin: Aggressive management of the hyperglycemia would be appropriate. Status: Chronic (6) Acute kidney injury: Patient may be carefully treated with IV fluids. BMP needs to be repeated. Status: Acute Additional A&P Information The echocardiogram was reviewed. For further evaluation of the patient's coronary status, a cardiac catheterization would be appropriate. The risk of bleeding, hematoma, vascular injury, myocardial infarction, CVA, renal failure and other concomitant complications were explained in detail. Especially with high BUN/creatinine, he carries a high risk for contrast-induced nephropathy. Patient will be carefully hydrated and the BMP will be repeated. He the BUN/creatinine is coming down, we may consider doing a cardiac evaluation today and then will decide on further management. Based on the patient clinical progress, further recommendations will be made. Discussed the issues with Dr. Davenport who concurred with this plan. Thank you for the opportunity to evaluate this patient and make these recommendations Coding Level of Care Code Acute Tube Sorter for Chg Fwd Diagnoses NSTEMI (non-ST elevated myocardial infarction) I21.4 Unstable angina I20.0 Mixed hyperlipidemia E78.2 Hypertension I10 Hypertension type: essential hypertension Controlled type 2 diabetes mellitus with complication, with long-term current use of insulin E11.8; Z79.4 Acute kidney injury N17.9
--- NOTE | 2019-11-25 11:08 | PC.NURSE ---
dr ontiveros does not want lovenox given this morning due to creat level and potential for cardiac cath
[2019-11-25 11:41] LABS: Glucose Point of Care 133 mg/dL (70-110)
--- NOTE | 2019-11-25 11:47 | PC.NURSE ---
pt received 500 cc bolus of ns per dr ontiveros.will recheck bmp at 1230.if creat improves..may go to the [facility] lab this afternoon
[2019-11-25 13:01] LABS: Anion Gap 15.6 (5-19); Blood Urea Nitrogen 21 mg/dL (6-20); Calcium 9.1 mg/dL (8.5-10.5); Carbon Dioxide 23 mmol/L (22-29); Chloride 103 mmol/L (98-107); Glomerular Filtration Rate 51.9 mL/min (90-130); Glucose 125 mg/dL (65-115); Osmolality Calculated 288 mOsm/kg (285-295); Potassium 4.6 mmol/L (3.5-5.1); Sodium 137 mmol/L (136-145)
--- NOTE | 2019-11-25 13:20 | PM.PN ---
Subjective Subjective: Interval history: Patient was comfortably lying in the bed. He is chest pain-free. Has been set up for cardiac cath. Cardiology is on board. His vitals and labs have been reviewed. He has also bolused with 1 L normal saline. Vitals/I&O/Wt Last Vital Signs Temp 98.3 F 11/25/19 04:00 Pulse 63 11/25/19 08:00 Resp 18 11/25/19 08:00 BP 117/67 11/25/19 08:00 Pulse Ox 98 11/25/19 08:00 Weight last 48 hrs Weight 113.398 kg Physical Exam Const: COMMON NORMALS: patient oriented x3 HENMT: COMMON NORMALS: normocephalic, atraumatic, hearing grossly normal bilaterally and external ears normal HEAD & SCALP: normocephalic and atraumatic EXTERNAL EAR: Yes external ears normal Eye: COMMON NORMALS: no scleral icterus GENERAL EYE: appearance normal, both eyes and all related structures Chest: COMMONS NORMALS: normal inspection of the chest and normal palpation of entire chest wall CHEST: Yes Symmetrical chest wall rise Resp: COMMON NORMALS: normal respiratory effort, No retractions, No use of accessory muscles and clear to auscultation bilaterally EFFORT & INSPECTION: Yes symmetric chest movement AUSCULTATION: clear to auscultation bilaterally Cardio: COMMON NORMALS: regular rate, regular rhythm, S1 normal heart sound present, S2 normal heart sound present, No gallops present (Cardio), No murmurs present (Cardio), No rub (Cardio) and Peripheral pulses 2+ throughout RATE: regular rate RHYTHM: regular rhythm HEART SOUNDS: S1 normal heart sound present and S2 normal heart sound present PERIPHERAL PULSES: Peripheral pulses 2+ throughout GI: COMMON NORMALS: Normal to inspection, nondistended, normoactive bowel sounds present, Soft to palpation, non-tender, No hepatosplenomegaly present and no masses AUSCULTATION: Yes normoactive bowel sounds PALPATION: Yes Soft to palpation and Yes No hepatosplenomegaly present RECTAL EXAM: Yes deferred Extremity: COMMON NORMALS: no clubbing, cyanosis or edema and no pedal edema Neuro: COMMON NORMALS: patient oriented x3 Data : 11/25/19 03:33 11/25/19 12:39 A&P Assessment and plan (1) Status post cardiac catheterization: Final cath report and recommendation awaited. Status: Acute (2) NSTEMI (non-ST elevated myocardial infarction): 59 year old male past medical history of hypertension, diabetes, came in with chief complaint of, substernal squeezeing chest pain, started yesterday night, worsened with exertion, radiating to left arm, relieved with rest, associated with nausea and diaphoresis. He decided to come to the as the chest pain was bothering him and he felt as if he is having a heart attack.On review of system he denies any fever cough, shortness of breath, headache, blurred vision, abdominal pain, constipation, diarrhea, urinary complaint. Baseline troponin: 247, 2-hour: 276 , with a delta of: 29.4 Baseline EKG: Normal sinus rhythm. 2D echo 11/23: Normal LVEF ( 60 % ). No RWMA. No pericardial effusion. No gross valvular abnormality. X-ray chest: No nodules, masses or effusions are seen. The heart is normal. The pulmonary vascularity is not increased. No pneumonia or pneumothorax is present. Aspirin 325 mg x1 dose, thereafter aspirin 81 mg oral daily Plavix 300 Mg x1 dose Lipitor 80 mg oral daily Carvedilol 6.25 mg q12 h oral daily Serial EKG 2D echo Trend troponin N.p.o. Cardiology: Consult Possible cath in a.m. Status: Acute (3) Hypertension: Patient is on candesartan at home. We will hold that anticipating cath. Will start on carvedilol 6.25 every 12 hours daily. Status: Chronic Qualifiers: Hypertension type: essential hypertension Qualified Code(s): I10 - Essential (primary) hypertension (4) Controlled type 2 diabetes mellitus with complication, with long-term current use of insulin: Low-dose sliding scale insulin. Monitor fingerstick glucose. HbA1c. Status: Chronic (5) Mixed hyperlipidemia: On Lipitor 80 mg oral daily Status: Chronic (6) Anxiety: No acute intervention Status: Chronic Additional A&P Information DVT prophylaxis: Lovenox GI prophylaxsis: Not needed Code status: Full code Attestations Medical Necessity Statement*: Patient is admitted with NSTEMI .stay is expected to cross two midnights Coding Level of Care Code Acute Field Handyman for [facility] Fwd Exam Comprehensive Diagnoses Status post cardiac catheterization Z98.890 NSTEMI (non-ST elevated myocardial infarction) I21.4 Hypertension I10 Hypertension type: essential hypertension Controlled type 2 diabetes mellitus with complication, with long-term current use of insulin E11.8; Z79.4 Mixed hyperlipidemia E78.2 Anxiety F41.9
--- NOTE | 2019-11-25 13:32 | XACV_ITS ---
Exam Room: [facility] Ht: 178 cm Wt: 113 kg BSA: 2.41 m2 Gender: Male : 1960 Any Known Allergies: No known allergies Exam Priority: Routine Procedure(s): Procedure Description: Diagnostic procedure Procedure Description: PCI procedure Procedure Description: Left ventriculography Procedure Description: Drug Eluting Coronary Stent Procedure Description: PTCA Procedure Description: Coronary Angiography Diagnostic Cath Status: Urgent Diagnostic Findings * LM medium caliber short vessel with no significant stenotic lesions. * LAD is a medium caliber vessel which appears to wrap around the LV apex minimally. The proximal segment of the artery was found to have mild diffuse narrowing of around 30 to 30%. No other significant stenotic lesions were seen. * RCA was found to be totally occluded in the proximal segment. Grade 3 rabi-hb-yqkhe collaterals were noted. * The circumflex artery is a medium caliber vessel which appears to * have a subtotal occlusion of the mid segment * towards the origin of the second obtuse marginal branch. * The first obtuse marginal artery was found to have proximal * around 40 to 50% tubular narrowing. * Coronary angiography shows right dominance. PCI Status: Urgent PCI Indication: NSTE - ACS Interventional Findings * Distal Circumflex Coronary Artery: 99% stenosis treated with AB MINI TREK 2.00X12 RX BALLOON and MDReina R FILIPPO 2.75X15 SANA. 0% residual stenosis, JUAN R: 3 flow. * Successful PCI to distal LCx. Lesion was prepared with AB MINI TREK 2.0 x 12] mm followed by deployment of FILIPPO 2.75X15 mm 2.75 x 18 mm stent posted at high KAYLENE of 16 mm to ensure proper approximation. Excellent angiographic result with JUAN R-3 flow was achieved.. Conclusions 1. 59-year-old white male with a history of diabetes, dyslipidemia is admitted to hospital with features of a non-ST elevation myocardial infarction. For further evaluation of his coronary status, a cardiac catheterization was recommended. Patient underwent left heart catheterization with a left and right coronary angiogram today. The findings are as follows. 2. Subtotal occlusion of the mid circumflex artery at the takeoff of the second obtuse marginal branch. Right coronary artery was totally occluded before the first RV branch. Other vessels were found to have mild to moderate disease. Grade 3 kqeq-mt-lsfrx collaterals. LVEDP of 20 mmHg. LV gram was not performed because of the renal dysfunction. 3. Based on the above angiographic findings, it is thought to be appropriate to consider PCI of the circumflex artery lesion. I discussed the cardiac radiation findings with Dr. Flood. Dr Flood took over further management of this patient at this point. 4. Distal Circumflex Coronary Artery was treated with Balloon and Drug Eluting Stent. Recommendations * 1-Return to inpatient for close monitoring and routine cath care 2-Risk factor modification for secondary prevention 3-Statin and aspirin 81 mg life--long, if tolerated 4-Patient was pre-loaded with 300 mg of Plavix, continue Plavix 75mg p.o. daily for at least one year. We will assess at the end of one year again to continue if further or not 5-Continue optimal medical management 6-Follow up with Dr. Norwood in four weeks and your primary care in 10 days. Diagnostic RX Recommendation: PCI w/o planned CABG LV EDP: 20 mmHg Pressures Phase:Rest AO : 121 / 48 ( 72 ) @ 9:33:00 AM / ( -8 ) @ 10:19:00 AM LV : 123 / 2 / @ 9:33:00 AM Clinical Evaluation EBL: 5mL-10mL Procedural Details Procedure Consent Obtained. Pre-Procedure Time Out. Identified patient by full name and date of as verbalized by the patient/guarantor. Does the consent match the physician's order: Yes. Accurate & Complete Informed Consent: Yes. Inpatient/Outpatient History & Physical on Chart: Yes. If H&P is completed, is and addenduem needed: N/A; If yes, is the addendum complete: N/A. Visualize and Verify Site with Patient/Guarantor: N/A. Relevant Radiology Images available: Yes. Pre-op teaching completed and patient verbalized understanding. The risks, benefits, and alternatives of sedation and/or procedure were discussed by physician. The patient agrees to continue. Procedure started. PERRLA. Strong, equal hand electrical prospecting operator bilaterally. Lungs clear x 5 lobes. IV Site on Arrival: 18 gauge in the left anticubital. IV Fluids: 0.9% NaCl at KVO. 0 mL infused prior to laborer hoisting. Pre Procedural Pulses: bilateral dorsalis pedis was 2+. Pre Procedural Pulses: bilateral posterior tibial was 2+. Pre Procedural Pulses: bilateral radial was 3+. Oxygen started at 2liters/min via nasal canula. right groin was prepped with chloroprep then draped in the usual sterile fashion. right radial was prepped with chloroprep then draped in the usual sterile fashion. Physician notified. Physician arrived. Equipment: 6F - Radial. ACIST Manifold Kit Model BT 2000. Cardiac Cath Pack. Heparinized Saline (2 units/mL), 1000 mL bag. Baseline sample Acquired. HR: 73 BPM. Physician scrubbed in. Immediate Pre-Procedure Time Out. Correct Patient: Yes; Correct Procedure: Yes; Correct Site: Yes; Correct Patient Position: Yes; Correct Supplies: Yes; Dried Flammable Prep: Yes; Blood Products Available: No;. Lidocaine 1% infiltrated to the right radial. Arterial access obtained. A 5 tuvaluan Greg catheter in over wire. Multiple views taken of left coronary artery. Catheter redirected to the RCA. Catheter out. Multiple views taken of right coronary artery. Catheter out. EDP Sample taken: LV 123/2,20; HR: 81 BPM; SpO2: 97%. A 5 tuvaluan Angled Pig catheter in over wire. ACT drawn. Results 142 seconds. Therapeutic limits - pre-heparin administration 90-150 seconds and monitoring heparin during a vascular procedure >250 seconds. Catheter out. 6 tuvaluan XB 3.5 guide catheter was inserted over the wire. [place] guidewire was advanced through the guide catheter to lesion in the distal Circ. Inflation number : 1 A AB MINI TREK 2.00X12 RX BALLOON was prepped and advanced across the Dist CX , then inflated to 12 KAYLENE for 0:17 seconds. Inflation number: 2 The AB MINI TREK 2.00X12 RX BALLOON was reinflated across the Dist CX, to 16 KAYLENE for 0:11 seconds. Balloon out. Inflation Number : 3 A LAUREL Parra FILIPPO 2.75X15 SANA -Lot Number# [id number] was prepped and advanced across the Dist CX. The stent was deployed at 14 KAYLENE for 0:17 seconds. Stent expiration date: 04/27/2021. Stent balloon and wire out. Guide catheter out. 6 tuvaluan JR 4 guide catheter was inserted over the wire. Runthrough wire inserted. Everything out. Vital chart was stopped. TR band placed. Hemostasis obtained. Post Procedure: Pulses reassessed and unchanged. PERRLA. Strong, equal hand electrical prospecting operator bilaterally. No VTE prophylaxis required. Medication's Wasted: Lidocaine 1% = 18 mL. Medication's Wasted: Nitro = 49.8 mg. Medication's Wasted: Heparin = 4000 units. Total IV fluids: 350 mL. PCI Indication: NSTE. Post-op diagnosis: CAD. Complications: None. Estimated blood loss: 5mL-10mL. Procedure completed. Patient transferred by wheelchair to 1st floor. Access Site Site: Right Radial artery Sheath Size: 6 Fr Hemostasis Success: Unsuccessful Procedure Medications Start: 2:07 PM Stop: 2:07 PM Medication: Versed Amount: 1 mg Route: I.V. Start: 2:08 PM Stop: 2:08 PM Medication: Fentanyl Amount: 50 mcg Route: I.V. Start: 2:14 PM Stop: 2:14 PM Medication: Versed Amount: 1 mg Route: I.V. Start: 2:16 PM Stop: 2:16 PM Medication: 0.9% Saline Amount: 250 ml Route: I.V. bolus Start: 2:19 PM Stop: 2:19 PM Medication: Fentanyl Amount: 50 mcg Route: I.V. Start: 2:21 PM Stop: 2:21 PM Medication: Verapamil Amount: 5 mg Route: I.A. Start: 2:24 PM Stop: 2:24 PM Medication: Heparin Amount: 4000 units Route: I.V. Start: 2:25 PM Stop: 2:25 PM Medication: Versed Amount: 1 mg Route: I.V. Start: 2:28 PM Stop: 2:28 PM Medication: Versed Amount: 1 mg Route: I.V. Start: 2:47 PM Stop: 2:47 PM Medication: Versed Amount: 1 mg Route: I.V. Start: 2:49 PM Stop: 2:49 PM Medication: Heparin Amount: 4000 units Route: I.V. Start: 3:00 PM Stop: 3:00 PM Medication: Versed Amount: 1 mg Route: I.V. Start: 3:00 PM Stop: 3:00 PM Medication: Fentanyl Amount: 50 mcg Route: I.V. Start: 3:06 PM Stop: 3:06 PM Medication: Nitrogylcerin Amount: 200 mcg Route: I.C. Start: 3:11 PM Stop: 3:11 PM Medication: Versed Amount: 1 mg Route: I.V. I, the attending physician, have reviewed and verified all procedure medications. Yes, all medications given per verbal order History/Risk Factors Hypertension: Yes Dyslipidemia: No Peripheral Arterial Disease (PAD): No Myocardial Infarction (LA): No Obesity: No Renal Disease: No Tobacco Use: Former Prior Interventions PCI: No CABG: No Valve Surgery: No Report Signatures Interventional Workflow Finalized by Hari Flood MD on 12/10/2019 05:32 PM Diagnostic Workflow Finalized by Dr Laurie Norwood MD [facility] on 11/25/2019 09:45 PM
--- NOTE | 2019-11-25 14:06 | W.PM.OPSUD ---
Surgery/Procedure H&P Update DATE OF PROCEDURE: November 25, 2019 DATE H&P PERFORMED: 11/25/19 H&P UPDATE INFORMATION: I have reviewed H&P completed within last 30 days and I have examined patient prior to procedure PREOP DIAGNOSIS: Non-ST elevation myocardial infarction PRIMARY INDICATION FOR PROCEDURE: Non-ST elevation myocardial infarction/unstable angina PLANNED PROCEDURE: Left heart catheterization with a left and right coronary angiogram, LV angiogram and possible PCI PATIENT REASSESSED PRIOR TO SEDATION, WITH NO CHANGE NOTED: Yes PHYSICAL EXAM: alert, oriented x 3, clear to auscultation bilaterally and regular rate & rhythm AIRWAY EVAL/ANESTHESIA PLAN: normal airway, see other exam findings and ASA III
--- NOTE | 2019-11-25 14:45 | PC.NURSE ---
to salvage laborer via bed at 1400
--- NOTE | 2019-11-25 15:45 | PC.NURSE ---
received from cardiac director of labor relations at 1540.report received.pt is alert and oriented x 4.denies pain at present.sr on monitor.vss.right wrist with tr band on and inflated.right hand is warm to touch and with brisk capillary refill.palpable radial pulse noted distal to tr band.no hematoma noted.instructed pt in activity restrictions s/p radial artery procedure...and instructed pt to notify staff for any bleeding,pain,numbness,tingling...or for any concerns at all.pt verb understanding of instructions.
[2019-11-25] MEDS: sodium chloride 0.45% 1,000 ML 100 ML IV (15:56)
[2019-11-25 16:04] LABS: Glucose Point of Care 106 mg/dL (70-110)
[2019-11-25 20:09] LABS: Glucose Point of Care 149 mg/dL (70-110)
--- NOTE | 2019-11-25 20:31 | PC.NURSE ---
Tr band removed at this time. Cleaned and covered site with 2x2 and bio-occlusive. Instructed patient on site care and restrictions. Patient verbalized complete understanding.
[2019-11-26] MEDS: sodium chloride 0.45% 1,000 ML 100 ML IV (02:02)
[2019-11-26 04:00] VITALS: BP 119/71; PULSE 79; RESP 20; O2SAT 96
[2019-11-26 04:09] LABS: Basophils % 0.3 %; Eosinophils # 0.2 10^3/uL (0.0-0.8); Hematocrit 53.4 % (42.0-52.0); Hemoglobin 16.9 g/dL (11.7-16.6); Lymphocytes # 2.9 10^3/uL (0.8-4.8); Lymphocytes % 27.2 %; Mean Corpuscular HGB Conc 31.6 g/dL (30.0-36.0); Mean Corpuscular Hemoglobin 30.6 pg (28.0-34.0); Mean Corpuscular Volume 96.6 fL (80-94); Mean Platelet Volume 11.3 fL (7.4-10.4); Monocytes # 0.9 10^3/uL (0.2-0.9); Monocytes % 8.6 %; Neutrophils # 6.64 10^3/uL (1.8-7.7); Neutrophils % 61.5 %; Nucleated Red Blood Cells % 0 %; Platelet Count 144 10^3/cmm (130-400); Red Blood Count 5.53 10^6/uL (4.1-5.3); Red Cell Distribution Width 13.2 % (12.1-15.1); White Blood Count 10.8 10^3/uL (4.0-10.0)
[2019-11-26 04:33] LABS: Alanine Aminotransferase 32 U/L (0-41); Albumin Level 3.9 g/dL (3.5-5.2); Alkaline Phosphatase 104 IU/L (40-130); Anion Gap 13.8 (5-19); Aspartate Amino Transferase 46 U/L (0-40); Blood Urea Nitrogen 19 mg/dL (6-20); Carbon Dioxide 23 mmol/L (22-29); Chloride 103 mmol/L (98-107); Globulin 2.8 g/dL (1.3-4.6); Glucose 120 mg/dL (65-115); Magnesium 2.1 mg/dL (1.7-2.3); Osmolality Calculated 283 mOsm/kg (285-295); Potassium 4.8 mmol/L (3.5-5.1); Sodium 135 mmol/L (136-145); Total Bilirubin 0.7 mg/dL (0.15-1.2); Total Protein 6.7 g/dL (6.6-8.7)
--- NOTE | 2019-11-26 05:30 | PC.NURSE ---
Patient resting watching tv. Patient denies pain or needs at this time. No distress observed.
[2019-11-26 06:27] LABS: Glucose Point of Care 111 mg/dL (70-110)
[2019-11-26 08:00] VITALS: BP 126/76; PULSE 68; RESP 18; TEMP 36.5; O2SAT 97
[2019-11-26] MEDS: carvedilol 6.25 mg Tablet PO (08:39)
[2019-11-26] MEDS: clopidogrel 75 mg Tablet PO (08:39)
[2019-11-26] MEDS: aspirin 81 mg EC Tablet PO (08:39)
--- NOTE | 2019-11-26 09:31 | P.PN_ITS ---
Subjective Subjective: Interval history: The patient underwent left heart catheterization with a left and right coronary angiogram yesterday. He was found to have total occlusion of the proximal right coronary artery. He had subtotal occlusion of the mid circumflex artery. He underwent PCI of the circumflex lesion. Currently he is doing okay with no chest pain. No shortness of breath. He has been ambulating on telemetry with no specific complaints. No arrhythmias on the monitor. Vital signs remained stable. Medications: Reviewed: Yes Medication Review Details: Current Medications Acetaminophen (Tylenol) 650 mg PO Q6H PRN PRN Reason: Mild/Mod Pain Or Temp >/= 101 Hydrocodone Bitart/Acetaminophen ([place] 5-325 Mg) 1 tab PO Q4H PRN PRN Reason: MODERATE TO SEVERE PAIN Al Hydrox/Mg Hydrox/Simethicone (Maalox) 30 ml PO Q15M PRN PRN Reason: INDIGESTION Alprazolam (Xanax) 0.25 mg PO TID PRN PRN Reason: ANXIETY Aspirin (Aspirin Ec) 81 mg PO DAILY [facility] Last Admin: 11/26/19 08:39 Dose: 81 mg Documented by: Atropine Sulfate (Atropine) 0.5 mg IVP PRN PRN PRN Reason: Symptomatic bradycardia Bisacodyl (Dulcolax) 10 mg PO DAILY PRN PRN Reason: CONSTIPATION Carvedilol (Coreg) 6.25 mg PO Q12H [facility] Last Admin: 11/26/19 08:39 Dose: 6.25 mg Documented by: Clopidogrel Bisulfate (Plavix) 75 mg PO DAILY [facility] Last Admin: 11/26/19 08:39 Dose: 75 mg Documented by: Dextrose (D50w) 25 ml IVP ONCE PRN; Protocol PRN Reason: hypoglycemia protocol Dextrose (D50w) 50 ml IVP PRN PRN; Protocol PRN Reason: hypoglycemia protocol Glucagon (Glucagen) 1 mg IM ONCE PRN; Protocol PRN Reason: Adult Acute Hypoglycemia Prot. Dextrose (D5w) 500 mls @ 100 mls/hr IV ONCE PRN; Protocol PRN Reason: Adult Acute Hypoglycemia Prot Sodium Chloride (Sodium Chloride 0.45%) 1,000 mls @ 100 mls/hr IV .Q10H [facility] Last Admin: 11/26/19 02:02 Dose: 100 mls/hr Documented by: Insulin Aspart (Novolog) 0 unit SUBCUT WM&BEDTIME CALOS; Protocol Last Admin: 11/26/19 07:37 Dose: Not Given Documented by: Magnesium Hydroxide (Milk Of Magnesia) 30 ml PO DAILY PRN PRN Reason: CONSTIPATION Naloxone HCl (Narcan) 0.1 mg IVP Q2M PRN PRN Reason: OPIATERV Nitroglycerin (Nitrostat) 0.4 mg SUBLINGUAL Q5M PRN PRN Reason: CHEST PAIN Ondansetron HCl (Zofran) 4 mg IVP Q8H PRN PRN Reason: vomiting, or N/V if npo Temazepam (Restoril) 15 mg PO BEDTIME PRN PRN Reason: INSOMNIA Vitals/I&O/Wt Last Vital Signs Temp 97.7 F 11/26/19 08:00 Pulse 68 11/26/19 08:00 Resp 18 11/26/19 08:00 BP 126/76 11/26/19 08:00 Pulse Ox 97 11/26/19 08:00 11/25/19 11/26/19 11/26/19 22:59 06:59 14:59 Intake Total 360 / 360 1000 / 1360 100 / 100 Output Total 1150 / 1150 600 / 1750 475 / 475 Balance -790 / -790 400 / -390 -375 / -375 Weight last 48 hrs Weight 250 lb Physical Exam Narrative: EXAM NARRATIVE: GENERAL: The patient is alert and oriented times three. Not in any acute distress. Mild obesity HEENT: No significant pallor, icterus or lymphadenopathy. The pupils are reactant to light. Oral cavity: There are no mucous membrane lesions. NECK: Trachea appears to be central. No masses noted. No JVD or thyromegaly appreciated. No carotid bruit. RESPIRATORY: Chest is symmetrical. No intercostals muscle retraction or any accessory muscle activation. There is no chest wall tenderness. Breath sounds are heard bilaterally. No rales or rhonchi heard. No evidence of any consolidation. BREASTS: Deferred. HEART: PMI could not be palpated. No palpable precordial events. S1 and S2 are normal. No S3 or S4 heard. No pericardial rub or any click heard. ABDOMEN: No vessel pulsations or distention. No tenderness. No organomegaly appreciated. No abdominal bruit. Bowel sounds are normally heard. : Deferred. RECTAL: Deferred. LYMPHATIC: No lymphadenopathy noted in the neck or groin. EXTREMITIES: No edema or cyanosis. No clubbing. The pulses are symmetrical bilaterally. The radial, femoral, dorsalis pedis and the posterior tibial pulses are palpated and found to be in good volume and amplitude. MUSCULOSKELETAL: No acute joint deformities or swelling. The right shoulder mobility is somewhat limited. Patient had a multiple surgical intervention of the shoulder. SKIN: There are no significant scars or skin rash noted. NEUROPSYCHIATRIC: The patient is alert and oriented x3. Appears to be in a good mood. The higher functions are grossly within normal limits. No tremors or rigidity noted. Const: COMMON NORMALS: alert Resp: COMMON NORMALS: clear to auscultation bilaterally AUSCULTATION: clear to auscultation bilaterally Neuro: SENSORIUM/ORIENTATION: Yes alert Data : 11/26/19 03:44 11/26/19 03:44 Other Labs: Laboratory Last Values WBC 10.8 10^3/uL (4.0-10.0) H 11/26/19 03:44 RBC 5.53 10^6/uL (4.1-5.3) H 11/26/19 03:44 Hgb 16.9 g/dL (11.7-16.6) H 11/26/19 03:44 Hct 53.4 % (42.0-52.0) H 11/26/19 03:44 MCV 96.6 fL (80-94) H 11/26/19 03:44 MCH 30.6 pg (28.0-34.0) 11/26/19 03:44 MCHC 31.6 g/dL (30.0-36.0) 11/26/19 03:44 RDW 13.2 % (12.1-15.1) 11/26/19 03:44 Plt Count 144 10^3/cmm (130-400) 11/26/19 03:44 MPV 11.3 fL (7.4-10.4) H 11/26/19 03:44 Neut % (Auto) 61.5 % 11/26/19 03:44 Lymph % (Auto) 27.2 % 11/26/19 03:44 [place] % (Auto) 8.6 % 11/26/19 03:44 Eos % (Auto) 2.0 % 11/26/19 03:44 Baso % (Auto) 0.3 % 11/26/19 03:44 Neut # (Auto) 6.64 10^3/uL (1.8-7.7) 11/26/19 03:44 Lymph # (Auto) 2.9 10^3/uL (0.8-4.8) 11/26/19 03:44 [place] # (Auto) 0.9 10^3/uL (0.2-0.9) 11/26/19 03:44 Eos # (Auto) 0.2 10^3/uL (0.0-0.8) 11/26/19 03:44 Baso # (Auto) 0.0 10^3/uL (0.0-0.1) 11/26/19 03:44 Nucleated RBC % (auto) 0 % 11/26/19 03:44 Nucleated RBCs # 0.0 /100WBC 11/26/19 03:44 PT 13.30 SECONDS (12.1-14.9) 11/25/19 03:33 INR 0.98 (0.8-1.2) 11/25/19 03:33 APTT 35.0 SECONDS (23.9-36.7) 11/25/19 03:33 Sodium 135 mmol/L (136-145) L 11/26/19 03:44 Potassium 4.8 mmol/L (3.5-5.1) 11/26/19 03:44 Chloride 103 mmol/L (98-107) 11/26/19 03:44 Carbon Dioxide 23 mmol/L (22-29) 11/26/19 03:44 Anion Gap 13.8 (5-19) 11/26/19 03:44 BUN 19 mg/dL (6-20) 11/26/19 03:44 Creatinine 1.2 mg/dL (0.7-1.2) 11/26/19 03:44 GFR Calculation 62.0 mL/min (90-130) L 11/26/19 03:44 Glucose 120 mg/dL (65-115) H 11/26/19 03:44 POC Glucose 111 mg/dL (70-110) 11/26/19 06:25 Calculated Osmolality 283 mOsm/kg (285-295) L 11/26/19 03:44 Calcium 9.0 mg/dL (8.5-10.5) 11/26/19 03:44 Magnesium 2.1 mg/dL (1.7-2.3) 11/26/19 03:44 Total Bilirubin 0.7 mg/dL (0.15-1.2) 11/26/19 03:44 AST 46 U/L (0-40) H 11/26/19 03:44 ALT 32 U/L (0-41) 11/26/19 03:44 Alkaline Phosphatase 104 IU/L (40-130) 11/26/19 03:44 Troponin T Baseline 247 ng/L (0-15) H* 11/24/19 16:40 Troponin T 120 Minute 276.4 ng/L (0-15) H 11/24/19 18:44 Delta Troponin T 29.4 ABS# (0-10) H* 11/24/19 18:44 Troponin T Hi Sens 6Hr 338.9 ng/L (0-15) H 11/24/19 22:35 Troponin T Hi Sens 6Hr Delta 91.9 ng/L (0-12) H* 11/24/19 22:35 NT-Pro-B Natriuret Pep 262 pg/mL (0-125) H 11/24/19 16:40 Total Protein 6.7 g/dL (6.6-8.7) 11/26/19 03:44 Albumin 3.9 g/dL (3.5-5.2) 11/26/19 03:44 Globulin 2.8 g/dL (1.3-4.6) 11/26/19 03:44 Triglycerides 190 mg/dL (0-150) H 11/25/19 03:33 Cholesterol 95 mg/dL (0-200) 11/25/19 03:33 LDL Cholesterol, Calc 28 mg/dL (50-129) L 11/25/19 03:33 HDL Cholesterol 29 mg/dL (60-100) L 11/25/19 03:33 LDL/HDL Ratio 0.97 RATIO (0.00-3.22) 11/25/19 03:33 Cholesterol/HDL Ratio 3.28 mg/dL (1.0-5.00) 11/25/19 03:33 Lipase 59 U/L (13-60) 11/24/19 16:40 TSH 1.11 uIU/mL (0.27-4.20) 11/25/19 03:33 Urine Color Yellow (Yellow) 11/24/19 18:09 Urine Appearance Clear (CLEAR) 11/24/19 18:09 Urine pH 5 (5-7) 11/24/19 18:09 Ur Specific [place] 1.020 (1.005-1.030) 11/24/19 18:09 Urine Protein Neg (Negative) 11/24/19 18:09 Urine Glucose (UA) 4+ (Normal) H 11/24/19 18:09 Urine Ketones Negative (Negative) 11/24/19 18:09 Urine Blood Neg (Negative) 11/24/19 18:09 Urine Nitrate Negative (Negative) 11/24/19 18:09 Urine Bilirubin Neg (Negative) 11/24/19 18:09 Urine Urobilinogen Norm mg/dL (Negative) 11/24/19 18:09 Ur Leukocyte Esterase Negative (Negative) 11/24/19 18:09 A&P Assessment and plan (1) NSTEMI (non-ST elevated myocardial infarction): Patient status post PCI of the circumflex artery lesion. Currently remaining stable. Status: Acute (2) Unstable angina: No recurrence of chest pain, since the PCI. May continue on the current medications. Status: Acute (3) Mixed hyperlipidemia: May continue on the statin drug. Status: Chronic (4) Hypertension: Currently normotensive. Current medications may be continued. Status: Chronic Qualifiers: Hypertension type: essential hypertension Qualified Code(s): I10 - E ssential (primary) hypertension (5) Controlled type 2 diabetes mellitus with complication, with long-term current use of insulin: Aggressive management of the hyperglycemia would be appropriate. Status: Chronic (6) Acute kidney injury: Kidney function has improved. Status: Acute Additional A&P Information Since the patient is remaining stable with no new symptoms, he may be discharged home today. Patient will be seen [facility] 3 days days as per protocol-his make an appointment to be seen by Olya Russo on Wednesday Patient will be seen by me in 3 weeks in the office. Patient is advised to continue the medications as mentioned above. The importance of compliance to diet, medications and exercise were discussed. In the event of the patient developing chest pain ,unusual palpitations or any new symptoms, is advised to contact me or come to the hospital. Attestations Medical Necessity Statement*: Possible discharge home today Coding Level of Care Code Acute Certified Prosthetist Vice President for Chg Fwd Exam Expanded Problem Focused Diagnoses NSTEMI (non-ST elevated myocardial infarction) I21.4 Unstable angina I20.0 Mixed hyperlipidemia E78.2 Hypertension I10 Hypertension type: essential hypertension Controlled type 2 diabetes mellitus with complication, with long-term current use of insulin E11.8; Z79.4 Acute kidney injury N17.9
--- NOTE | 2019-11-26 10:05 | PM.DCS ---
Discharge Providers Date of Admission: 11/24/19 20:06 Date of Discharge: November 26, 2019 Attending Provider at Admission: Hari Modi MD Attending Provider at Discharge: Usman Davenport MD Primary Care Provider: SURAJ Otoole Diagnoses at Discharge Discharge Diagnosis (1) Status post cardiac catheterization: Status: Resolved (2) NSTEMI (non-ST elevated myocardial infarction): Status: Resolved (3) Controlled type 2 diabetes mellitus with complication, with long-term current use of insulin: Status: Chronic (4) Hypertension: Status: Chronic Qualifiers: Hypertension type: essential hypertension Qualified Code(s): I10 - Essential (primary) hypertension (5) Mixed hyperlipidemia: Status: Chronic (6) Acute kidney injury: Status: Acute Reason for Visit Reason for Visit: CP Hospital Course Hospital Course: 9 year old male past medical history of hypertension, diabetes, came in with chief complaint of, substernal squeezeing chest pain started one day prior to admission,worsened with exertion, radiating to left arm, relieved with rest, associated with nausea and diaphoresis.He was diagnosed with NSTEMI and was managed as per ACS protocol.He underwent CAG was found to have 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 He underwent PCI of the circumflex lesion. Currently he is doing okay with no chest pain. No shortness of breath. He has been ambulating on telemetry with no specific complaints. No arrhythmias on the monitor. Vital signs remained stable.He was also managed for MARLIN with I.V Fluid.SCR is heading in the rt direction.Given his testosterone therapy once weekly for hypogonadism his Hct is high,in the range to hold/stop for now.We have held it for now.He will follow as oupatient. He is being discharged in stable condition to follow cardiology as outpatient. 2D Echo: Normal LVEF : No RWMA, Valves Normal. Physical Exam Const: COMMON NORMALS: patient oriented x3 HENMT: COMMON NORMALS: normocephalic, atraumatic, hearing grossly normal bilaterally and external ears normal HEAD & SCALP: normocephalic and atraumatic EXTERNAL EAR: Yes external ears normal Eye: COMMON NORMALS: no scleral icterus GENERAL EYE: appearance normal, both eyes and all related structures Chest: COMMONS NORMALS: normal inspection of the chest and normal palpation of entire chest wall CHEST: Yes Symmetrical chest wall rise Resp: COMMON NORMALS: normal respiratory effort, No retractions, No use of accessory muscles and clear to auscultation bilaterally EFFORT & INSPECTION: Yes symmetric chest movement AUSCULTATION: clear to auscultation bilaterally Cardio: COMMON NORMALS: regular rate, regular rhythm, S1 normal heart sound present, S2 normal heart sound present, No gallops present (Cardio), No murmurs present (Cardio), No rub (Cardio) and Peripheral pulses 2+ throughout RATE: regular rate RHYTHM: regular rhythm HEART SOUNDS: S1 normal heart sound present and S2 normal heart sound present PERIPHERAL PULSES: Peripheral pulses 2+ throughout GI: COMMON NORMALS: Normal to inspection, nondistended, normoactive bowel sounds present, Soft to palpation, non-tender, No hepatosplenomegaly present and no masses AUSCULTATION: Yes normoactive bowel sounds PALPATION: Yes Soft to palpation and Yes No hepatosplenomegaly present RECTAL EXAM: Yes deferred Extremity: COMMON NORMALS: no clubbing, cyanosis or edema and no pedal edema Neuro: COMMON NORMALS: patient oriented x3 Discharge Data Data Completed and Pending: Completed Studies During Hospitalization Category Date Time Status XR chest 1V belinda ble [id number] Stat Exams 11/24/19 16:41 Completed CV echo complete* [id number] Routine Ultrasound 11/24/19 20:35 Completed Pending at discharge Category Date Time Status ORTHOPEDIC ASSISTANT request for service Routin e Exams 11/25/19 13:32 Taken Complete Blood Co unt w/Auto AM LABS Lab 11/27/19 04:00 Ordered Comprehensive Met abolic Panel AM LA BS Lab 11/27/19 04:00 Ordered Magnesium AM LABS Lab 11/27/19 04:00 Ordered Labs from last 24 hours 11/26/19 11/26/19 11/26/19 06:25 03:44 03:44 WBC 10.8 H RBC 5.53 H Hgb 16.9 H Hct 53.4 H MCV 96.6 H MCH 30.6 MCHC 31.6 RDW 13.2 Plt Count 144 MPV 11.3 H Neut % (Auto) 61.5 Lymph % (Auto) 27.2 [place] % (Auto) 8.6 Eos % (Auto) 2.0 Baso % (Auto) 0.3 Neut # (Auto) 6.64 Lymph # (Auto) 2.9 [place] # (Auto) 0.9 Eos # (Auto) 0.2 Baso # (Auto) 0.0 Nucleated RBC % (a uto) 0 Nucleated RBCs # 0.0 Sodium 135 L Potassium 4.8 Chloride 103 Carbon Dioxide 23 Anion Gap 13.8 BUN 19 Creatinine 1.2 GFR Calculation 62.0 L Glucose 120 H POC Glucose 111 Calculated Osmolal ity 283 L Calcium 9.0 Magnesium 2.1 Total Bilirubin 0.7 AST 46 H ALT 32 Alkaline Phosphata se 104 Total Protein 6.7 Albumin 3.9 Globulin 2.8 11/25/19 11/25/19 11/25/19 20:03 16:00 12:39 WBC RBC Hgb Hct MCV MCH MCHC RDW Plt Count MPV Neut % (Auto) Lymph % (Auto) [place] % (Auto) Eos % (Auto) Baso % (Auto) Neut # (Auto) Lymph # (Auto) [place] # (Auto) Eos # (Auto) Baso # (Auto) Nucleated RBC % (a uto) Nucleated RBCs # Sodium 137 Potassium 4.6 Chloride 103 Carbon Dioxide 23 Anion Gap 15.6 BUN 21 H Creatinine 1.4 H GFR Calculation 51.9 L Glucose 125 H POC Glucose 149 106 Calculated Osmolal ity 288 Calcium 9.1 Magnesium Total Bilirubin AST ALT Alkaline Phosphata se Total Protein Albumin Globulin 11/25/19 11:37 WBC RBC Hgb Hct MCV MCH MCHC RDW Plt Count MPV Neut % (Auto) Lymph % (Auto) [place] % (Auto) Eos % (Auto) Baso % (Auto) Neut # (Auto) Lymph # (Auto) [place] # (Auto) Eos # (Auto) Baso # (Auto) Nucleated RBC % (a uto) Nucleated RBCs # Sodium Potassium Chloride Carbon Dioxide Anion Gap BUN Creatinine GFR Calculation Glucose POC Glucose 133 Calculated Osmolal ity Calcium Magnesium Total Bilirubin AST ALT Alkaline Phosphata se Total Protein Albumin Globulin Vitals: Last Vital Signs Temp 97.7 F 11/26/19 08:00 Pulse 68 11/26/19 08:00 Resp 18 11/26/19 08:00 BP 126/76 11/26/19 08:00 Pulse Ox 97 11/26/19 08:00 Discharge Plan Discharge Patient Disposition: Home Condition: Stable Prescriptions: New atorvastatin 80 mg tablet 80 mg PO DAILY Qty: 30 RF: 0 carvedilol 6.25 mg tablet 6.25 mg PO Q12H Qty: 30 RF: 0 Adult Aspirin Regimen 81 mg tablet,delayed release (DR/EC) 81 mg PO DAILY Qty: 30 RF: 0 Plavix 75 mg tablet 75 mg PO DAILY Qty: 30 RF: 0 Continued multivitamin Tablet 1 tab PO DAILY RF: 0 doxepin 25 mg capsule 25 mg PO TID Qty: 90 RF: 2 meclizine 25 mg tablet 25 mg PO DAILY Qty: 90 RF: 0 sucralfate [Carafate] 1 gram tablet 1 gm PO BID Qty: 180 RF: 0 venlafaxine [Effexor XR] 150 mg capsule,extended release 24hr 150 mg PO QAM Qty: 90 RF: 0 Invokana 100 mg tablet 100 mg PO QAM Qty: 90 RF: 0 Viagra 100 mg tablet 100 mg PO DAILY PRN (Reason: sexual activity) RF: 0 Lidoderm 5 % adhesive patch,medicated See Rx Instructions .ROUTE .COMPLEX RF: 0 candesartan 32 mg tablet 32 mg PO DAILY RF: 0 metformin 500 mg tablet extended release 24hr 2,000 mg PO DAILY RF: 0 Tresiba FlexTouch U-100 100 unit/mL (3 mL) insulin pen 20 unit SUBCUT DAILY RF: 0 Held testosterone cypionate 200 mg/mL oil 200 mg IM .weekly Qty: 10 RF: 5 Hold Instructions: Resume on 12/14/19. Discontinued aspirin 81 mg Tablet,Delayed Release (Dr/Ec) 162 mg PO DAILY RF: 0 atorvastatin [Lipitor] 40 mg tablet 40 mg PO DAILY RF: 0 Discharge Orders: Discharge Order (Routine); Ordered 11/26/19 Ordered By: Usman Davenport Referrals: Elizabeth Coy FNP-C [Primary Care Provider] - (The clinic will be calling you to set up a follow up appointment, if you have not heard from them by Wednesday please call the clinic to schedule your follow up care. ) Olya Spicer FNP [Nurse Practitioner] - 1 week (The clinic will be calling you to set up a follow up appointment, if you have not heard from them by wednesday please call the clinic to schedule your follow up care. ) Discharge Diet: Cardiac, Diabetic and Low Salt Discharge Activity: Resume usual activity Patient Instructions: Diabetes and Diet, Aspirin (By mouth), Atorvastatin (By mouth), Carvedilol (By mouth), Clopidogrel (By mouth), Hypertension, Chest Pain (GEN), Acute Kidney Injury (GEN), Heart Healthy Diet (GEN), Hyperlipidemia (GEN), Chest Pain Stoplight, Post Angiogram Home Care Instructions Discharge Date/Time: 11/26/19 11:58 Discharge Attestations Time Spent in Discharge Care*: greater than 30 min Specific Discharge Activities: Specific discharge activities: educating patient, discussing with pcp/other providers, discussing with case fitter/social workers/dc planners, documenting/other paperwork and evaluating patient/reviewing data Status at Discharge: Cognitive status at discharge: cognitively intact, Behavioral status at discharge: cooperative, Functional status at discharge: independent ambulation Overall status at discharge: patient is back to baseline Quality Metrics Clinical Quality Measures During this hospital stay, did patient experience: AMI Clinical Trial Participant: No Contraindication to aspirin (AMI): Aspirin given Contraindication to statin: Statin prescribed Contraindication to PCI: PCI performed Contraindication to Fibrinolytics: Alternative treatment initiated Coding Level of Care Code 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
[2019-11-26 10:23] VITALS: BP 126/76; PULSE 68; RESP 18; TEMP 36.5; O2SAT 97
--- NOTE | 2019-11-26 10:58 | PC.NURSE ---
Patient provided discharge instructions as well as education of new medications and post angio site care. Patient verbalized understanding. IV dc cath intact min bleeding noted bandage applied.
[2019-11-26 11:27] LABS: Glucose Point of Care 183 mg/dL (70-110)
--- NOTE | 2019-11-26 11:57 | PC.NURSE ---
patient discharged home at this time patient ambulatory to private vehicle patient accompanied by spouse patient alert oriented and in stable condition with all belongings including discharge instructions in hand
--- NOTE | 2023-06-21 16:29 | ECG_ITS ---
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 Measurements Intervals [place] Rate: 70 P: 58 CT: 202 QRS: 52 QRSD: 92 T: 26 QT: 369 QTc: 400 Interpretive Statements SINUS RHYTHM Compared to ECG 11/24/2019 20:20:22 No significant changes Electronically Signed On 06-22-2023 21:44:10 CDT by Laurie Norwood M.D. [email or web address]
== END 2019-11-26 11:58 | disposition home or self-care (01) | DRG 247 ==
LOC: ER 16:34 → CSU 22:02
PROVIDERS: Family Medicine; Internal Medicine Cardiovascular Disease; Admitting Provider Internal Medicine; PCP Nurse Practitioner; Visit Provider Internal Medicine
PROC: 027034Z Dilation of Coronary Artery, One Artery with Drug-eluting Intraluminal Device, Percutaneous Approach (ICD-10-PCS; principal; 2019-11-25 13:30)
DX: I21.4 Non-ST elevation (NSTEMI) myocardial infarction (principal); N17.9 Acute kidney failure, unspecified; E78.2 Mixed hyperlipidemia; E11.9 Type 2 diabetes mellitus without complications; Z79.84 Long term (current) use of oral hypoglycemic drugs; Z79.82 Long term (current) use of aspirin; F41.9 Anxiety disorder, unspecified; Z87.891 Personal history of nicotine dependence
CPT/HCPCS: 12345; 36415; 36416; 71045; 80048; 80053; 80061; 81000; 81003; 82962; 83036; 83690; 83735; 83880; 84443; 84484; 85025; 85347; 85610; 85730; 93005; 93306; 93458; 96372; 99284; C1725; C1769; C1874; C1887; C1894; C9600; J1644; J1650; J1815; J2250; J3010; J3490; J7030; Q9967

== ENCOUNTER → 2019-12-04 13:15 | Outpatient (BNVA) | payer MEDICARE, SELFPAY | PROVIDERS: PCP Nurse Practitioner; Visit Provider Nurse Practitioner Family | DX: I25.110 Atherosclerotic heart disease of native coronary artery with unstable angina pectoris (principal); Z95.5 Presence of coronary angioplasty implant and graft | CPT/HCPCS: 80048 ==

== ENCOUNTER → 2020-03-05 10:34 | Outpatient (BNVA) | payer MEDICARE, SELFPAY | PROVIDERS: PCP Nurse Practitioner; Visit Provider Nurse Practitioner | DX: E11.8 Type 2 diabetes mellitus with unspecified complications (principal); I10 Essential (primary) hypertension; K21.9 Gastro-esophageal reflux disease without esophagitis; F41.9 Anxiety disorder, unspecified; N52.1 Erectile dysfunction due to diseases classified elsewhere; Z79.4 Long term (current) use of insulin | CPT/HCPCS: 80053; 80061; 81000; 83036; 85025 ==

== ENCOUNTER → 2020-06-25 16:11 | Outpatient (BNVA) | payer MEDICARE, SELFPAY | PROVIDERS: PCP Family Medicine; Visit Provider Family Medicine | DX: E11.8 Type 2 diabetes mellitus with unspecified complications (principal); F41.9 Anxiety disorder, unspecified; I10 Essential (primary) hypertension; E78.2 Mixed hyperlipidemia; Z79.4 Long term (current) use of insulin | CPT/HCPCS: 80053; 80061; 83036; 84443 ==

== ENCOUNTER → 2020-07-01 09:15 | Outpatient (BNVA) | payer MEDICARE, SELFPAY | PROVIDERS: PCP Family Medicine; Visit Provider Urology | DX: R79.89 Other specified abnormal findings of blood chemistry (principal); Z12.5 Encounter for screening for malignant neoplasm of prostate; E55.9 Vitamin D deficiency, unspecified | CPT/HCPCS: 81003; 84403; 85025; G0103 ==

== ENCOUNTER → 2020-12-05 16:19 | Outpatient (BNVA) | payer MEDICARE, SELFPAY | PROVIDERS: PCP Family Medicine; Visit Provider Family Medicine | DX: E11.8 Type 2 diabetes mellitus with unspecified complications (principal); E55.9 Vitamin D deficiency, unspecified; E78.2 Mixed hyperlipidemia; F41.9 Anxiety disorder, unspecified; I10 Essential (primary) hypertension; Z79.4 Long term (current) use of insulin; E29.1 Testicular hypofunction; Z23 Encounter for immunization | CPT/HCPCS: 80053; 80061; 82306; 83036; 83721; 84403; 84443; 85025 ==

== ENCOUNTER → 2021-04-10 11:22 | Outpatient (BNVA) | payer MEDICARE, SELFPAY | PROVIDERS: PCP Family Medicine; Visit Provider Family Medicine | DX: E11.8 Type 2 diabetes mellitus with unspecified complications (principal); E55.9 Vitamin D deficiency, unspecified; E78.2 Mixed hyperlipidemia; I10 Essential (primary) hypertension; Z79.4 Long term (current) use of insulin; R53.83 Other fatigue; F41.9 Anxiety disorder, unspecified | CPT/HCPCS: 80053; 80061; 82306; 82607; 83036; 83540; 84403; 84443 ==

== ENCOUNTER → 2021-06-05 17:18 | Outpatient (BNVA) | payer MEDICARE, SELFPAY | PROVIDERS: PCP Family Medicine; Visit Provider Family Medicine | DX: R10.11 Right upper quadrant pain (principal) | CPT/HCPCS: 80076 ==

== ENCOUNTER 2021-06-18 08:20 | Outpatient (CLI) | payer MEDICARE, SELFPAY ==
--- NOTE | 2021-06-18 08:45 | US_ITS ---
WS: [id number] Complete ABDOMINAL ULTRASOUND HISTORY: R10.11 - Right upper quadrant pain COMPARISON: 01/22/2014 RIGHT upper quadrant ultrasound. Liver: 20.1 cm in length. Moderately enlarged liver. Very mild coarse echotexture. No mass or bile du ct dilatation. Portal Vein: Normal hepatopetal flow with monophasic waveform. Gallbladder: Normally distended with no gallstones, wall thickening or pericholecystic fluid. Gallbladder wall thickness: 0.3 cm. Pancreas: Tail is obscured by bowel gas. The remaining pancreas is negative. CBD: 0.4 cm. Right kidney: 11.7 cm x 4.8 cm x 4.7 cm. No mass, cortical thickening or hydronephrosis. Left kidney: 11.8 cm x 5.4 cm x 6.6 cm. No mass, cortical thickening or hydronephrosis. Spleen: Normal size and echogenicity. Abdominal aorta and IVC are within normal limits. No ascites. US/US abdomen complete* [id number] IMPRESSION: 1. Normal gallbladder. 2. Moderate hepatomegaly with very mild hepatic steatosis. Similar to the prio r study from 2013.
== END 2021-06-18 08:21 | disposition home or self-care (01) ==
LOC: RAD 08:25
PROVIDERS: PCP Family Medicine; Visit Provider Family Medicine
DX: R10.11 Right upper quadrant pain (principal); R16.0 Hepatomegaly, not elsewhere classified; K76.0 Fatty (change of) liver, not elsewhere classified
CPT/HCPCS: 76700

== ENCOUNTER 2021-07-31 07:57 | Outpatient (CLI) | payer MEDICARE, SELFPAY ==
--- NOTE | 2021-07-31 08:00 | NM_ITS ---
WS: [id number] NUCLEAR MEDICINE HIDA SCAN CLINICAL INFORMATION: R10.11 - Right upper quadrant pain TECHNIQUE: Following intravenous administration of 7.3 mCi of technetium 99m mebrofenin, images of th e abdomen were obtained over the course of 60 minutes. Next, gallbladder ejection fraction was determ ined by obtaining preprandial and one-hour postprandial images of the gallbladder following oral tatyana stion of Ensure. COMPARISON: Ultrasound June 18, 2021 FINDINGS: Normal hepatic uptake at 5 minutes. Hepatomegaly with coarse radiotracer uptake. Recommend correlatio n with liver function tests. Gallbladder is visualized by 20 minutes. No evidence of acute cholecysti tis. Normal common bile duct and small bowel activity. Normal hepatic excretion. Gallbladder ejection fraction 85% within normal limits. No evidence of chronic cholecystitis. NM/NM hepatobiliary w phar* [id number] IMPRESSION: 1. No evidence of acute or chronic cholecystitis. 2. Gallbladder ejection fraction 85 % within normal limits. 3. Hepatomegaly
== END 2021-07-31 07:58 | disposition home or self-care (01) ==
LOC: RAD 07:58
PROVIDERS: PCP Family Medicine; Visit Provider Family Medicine
DX: R10.11 Right upper quadrant pain (principal); R16.0 Hepatomegaly, not elsewhere classified
CPT/HCPCS: 78227; A9537

== ENCOUNTER → 2021-08-11 14:29 | Outpatient (BNVA) | payer MEDICARE, SELFPAY | PROVIDERS: PCP Family Medicine; Visit Provider Family Medicine | DX: R16.0 Hepatomegaly, not elsewhere classified (principal) | CPT/HCPCS: 80076; 86705; 86706; 86709; 86803; 87340 ==

== ENCOUNTER 2021-09-22 15:34 | Outpatient (CLI) | payer MEDICARE, SELFPAY ==
--- NOTE | 2021-09-22 15:48 | XR_ITS ---
WS: [id number] Exam: XR shoulder RT min 2V* [id number] Date/Time of Exam: 09/22/2021 3:52 PM Reason For Exam: M25.511 - Pain in right shoulder No acute fracture or dislocation. Moderate degenerative change at the glenohumeral joint. AC joint se paration. Normal soft tissues. XR/XR shoulder RT min 2V* [id number] IMPRESSION: 1. Degenerative change of the glenohumeral joint. 2. AC joint separation. No fractures are noted.
--- NOTE | 2021-09-22 15:48 | XR_ITS ---
WS: [id number] Exam: XR ribs RT 2V* [id number] Date/Time of Exam: 09/22/2021 3:52 PM Reason For Exam: R07.81 - Pleurodynia No fracture or dislocation noted. The right lung is clear and fully expanded. No pleural or pulmonary reactive changes. XR/XR ribs RT 2V* [id number] IMPRESSION: 1. Negative right rib study. No pneumothorax.
== END 2021-09-22 15:35 | disposition home or self-care (01) ==
LOC: RAD 15:37
PROVIDERS: PCP Family Medicine; Visit Provider Family Medicine
DX: R07.81 Pleurodynia (principal); S43.101A Unspecified dislocation of right acromioclavicular joint, initial encounter
CPT/HCPCS: 71100; 73030

== ENCOUNTER → 2021-11-27 17:05 | Outpatient (BNVA) | payer MEDICARE, SELFPAY | PROVIDERS: PCP Family Medicine; Visit Provider Family Medicine | DX: I10 Essential (primary) hypertension (principal); E11.8 Type 2 diabetes mellitus with unspecified complications; Z79.4 Long term (current) use of insulin; E29.1 Testicular hypofunction; F41.9 Anxiety disorder, unspecified; E55.9 Vitamin D deficiency, unspecified; E78.2 Mixed hyperlipidemia; Z12.5 Encounter for screening for malignant neoplasm of prostate; K63.5 Polyp of colon | CPT/HCPCS: 80053; 80061; 82306; 83036; 83721; 84403; 84443; 85025; G0103 ==

== ENCOUNTER → 2022-02-12 13:33 | Outpatient (BNVA) | payer MEDICARE, SELFPAY | PROVIDERS: PCP Family Medicine; Visit Provider Family Medicine | DX: R68.89 Other general symptoms and signs (principal) | CPT/HCPCS: 87400 ==

== ENCOUNTER → 2022-06-05 08:24 | Outpatient (BNVA) | payer MEDICARE, SELFPAY | PROVIDERS: PCP Family Medicine; Visit Provider Family Medicine | DX: E78.2 Mixed hyperlipidemia (principal); E11.8 Type 2 diabetes mellitus with unspecified complications; E55.9 Vitamin D deficiency, unspecified; I10 Essential (primary) hypertension; Z79.4 Long term (current) use of insulin | CPT/HCPCS: 80053; 80061; 82306; 83036; 83721; 84403; 84443; 85025 ==

== ENCOUNTER → 2022-09-03 10:13 | Outpatient (BNVA) | payer MEDICARE, SELFPAY | PROVIDERS: PCP Family Medicine; Visit Provider Nurse Practitioner Family | DX: E11.8 Type 2 diabetes mellitus with unspecified complications (principal); Z79.4 Long term (current) use of insulin; I10 Essential (primary) hypertension; R79.89 Other specified abnormal findings of blood chemistry; E55.9 Vitamin D deficiency, unspecified | CPT/HCPCS: 80053; 80061; 82043; 82306; 83036; 84403; 84443; 85025 ==

== ENCOUNTER → 2022-12-16 12:30 | Outpatient (BNVA) | payer MEDICARE, SELFPAY | PROVIDERS: PCP Family Medicine; Visit Provider Family Medicine | DX: K29.60 Other gastritis without bleeding (principal); K21.9 Gastro-esophageal reflux disease without esophagitis; E11.8 Type 2 diabetes mellitus with unspecified complications; Z79.4 Long term (current) use of insulin; I10 Essential (primary) hypertension; E78.2 Mixed hyperlipidemia; N52.9 Male erectile dysfunction, unspecified; Z12.5 Encounter for screening for malignant neoplasm of prostate; N52.1 Erectile dysfunction due to diseases classified elsewhere | CPT/HCPCS: 80053; 80061; 83036; 84403; 84443; 85025; G0103 ==

== ENCOUNTER → 2023-02-10 11:02 | Outpatient (BNVA) | payer MEDICARE, SELFPAY | PROVIDERS: PCP Family Medicine; Visit Provider Family Medicine | DX: R05.9 Cough, unspecified (principal); J18.9 Pneumonia, unspecified organism | CPT/HCPCS: 71046 ==

== ENCOUNTER → 2023-04-21 16:50 | Outpatient (BNVA) | payer MEDICARE, SELFPAY | PROVIDERS: PCP Family Medicine; Visit Provider Family Medicine | DX: I10 Essential (primary) hypertension; E78.2 Mixed hyperlipidemia; E11.8 Type 2 diabetes mellitus with unspecified complications; Z79.4 Long term (current) use of insulin | CPT/HCPCS: 80053; 80061; 83036; 84443; 85025 ==

== ENCOUNTER → 2023-04-28 10:02 | Outpatient (BNVA) | payer MEDICARE, SELFPAY | PROVIDERS: PCP Family Medicine; Referring Provider Family Medicine; Visit Provider Surgery | DX: Z12.11 Encounter for screening for malignant neoplasm of colon (principal); K21.9 Gastro-esophageal reflux disease without esophagitis | CPT/HCPCS: 99024; 99203 ==

== ENCOUNTER → 2023-06-21 15:21 | Outpatient (BNVA) | payer MEDICARE, SELFPAY | PROVIDERS: PCP Family Medicine; Visit Provider Internal Medicine Cardiovascular Disease | DX: I25.110 Atherosclerotic heart disease of native coronary artery with unstable angina pectoris (principal); E78.2 Mixed hyperlipidemia; I10 Essential (primary) hypertension; E11.9 Type 2 diabetes mellitus without complications; Z79.4 Long term (current) use of insulin; Z87.891 Personal history of nicotine dependence | CPT/HCPCS: 93005; 99214 ==

== ENCOUNTER 2023-07-29 06:26 | Day surgery (SDC) | payer MEDICARE, SELFPAY ==
[2023-07-29 06:53] VITALS: BP 128/69; PULSE 63; RESP 18; TEMP 36.3; O2SAT 96; BMI 35.6
--- NOTE | 2023-07-29 06:57 | W.PM.OPSFHP ---
Same Day Surgery H&P Indication for Procedure/HPI DATE OF PROCEDURE: July 29, 2023 CHIEF COMPLAINT/INDICATIONFOR SURGICAL PROCEDURE: need for screening colonoscopy and GERD PREOP DIAGNOSIS: need for screening colonoscopy and GERD PLANNED PROCEDURE: Operation Date: 07/29/23 07:40 Proposed Procedures p 98524 egd [id number] colon G0105 screen colon H risk Z12.11,K21.9(Not Applicable) - Collins Moody MD s Colonoscopy(Not Applicable) - Collins Moody MD Medications/Allergies* Home Medications Medication Instructions Recorded Confirmed Type multivitamin 1 tab PO DAILY 07/03/19 07/27/23 History metformin 500 mg tablet,extended 2,000 mg PO DAILY 07/27/23 07/27/23 History release 24 hr venlafaxine 150 mg 150 mg PO DAILY 07/27/23 07/27/23 History capsule,extended release 24 hr canagliflozin 300 mg tablet 300 mg PO DAILY 07/29/23 07/29/23 History (Invokana) Allergies/Adverse Reactions Allergy/AdvReac Type Severity Reaction Status Date / Time No Known Allergies Allergy Verified 06/21/23 15:48 Pertinent History/Comorbid Conditions* Medical History (Updated 07/07/23 @ 16:26 by Rizwana Owen MD) Obesity Recent non-ST elevation myocardial infarction (NSTEMI) Presence of stent in left circumflex coronary artery Acute kidney injury Unstable angina NSTEMI (non-ST elevated myocardial infarction) Gastric reflux Mixed hyperlipidemia Anxiety Asthmatic bronchitis Hypertension Controlled type 2 diabetes mellitus with complication, with long-term current use of insulin Vitamin D deficiency Surgical History (Updated 11/27/19 @ 00:01 by UGO Vasquez) Status post cardiac catheterization Status post routine circumcision History of tonsillectomy and adenoidectomy History of arthroscopic surgery of shoulder right 3 surgeries left 1 Family History (Updated 07/11/20 @ 10:30 by Evy Burris RN) Father, at age 89 Mother, at age 83 Diabetes Mother Brother CAD (coronary artery disease) Father Dementia Mother Father Heart disease Mother Sepsis Father Hypertension Mother Stroke Mother Father Denies family history of Clotting disorder Psychiatric illness Chronic kidney disease (CKD) Suicide Anesthesia complication Bleeding disorder Lung disease Cancer Social History Smoking and tobacco/nicotine status: former use of tobacco/nicotine Quit status (tobacco/nicotine): has quit using Year quit tobacco: 1997 Former quit date comment: smoked PPD x 8 yrs Second hand smoke exposure: No Alcohol intake: current Alcohol intake frequency: holidays/special occasions only Substance/Drug Use: current Substance/Drug use frequency: daily Other substance/drug use details: has medical card Adopted: No Caregiver/support person: No Lives independently: Yes Household members: spouse Housing: House Marital status: Number of children: 2 Number of grandchildren: 9 service: No Current occupational status: disabled Pets and animals: Yes Pets & animals: dog(s) Sexually active: Yes Do you think of yourself as: Straight/Heterosexual Current gender identity: Male Pertinent Exam Findings alert, oriented x 3, clear to auscultation bilaterally and regular rate & rhythm Recommendations Surgery/Procedure today Coding Level of Care Code Acute Code for Cheli Davalos
[2023-07-29] MEDS: sodium chloride 0.9% 1,000 ML 30 ML IV (07:08)
[2023-07-29 07:12] LABS: Glucose Point of Care 201 mg/dL (70-110)
--- NOTE | 2023-07-29 07:14 | ANES.PREANE2 ---
Pre-Anesthetic Assessment Height/Weight: Height 1.75 m Weight 109.316 kg Temp Pulse Resp BP Pulse Ox O2 Del Method 97.4 F L 63 18 128/69 96 Room Air 07/29/23 06:53 07/29/23 06:53 07/29/23 06:53 07/29/23 06:53 07/29/23 06:53 07/29/23 06:53 Preop Diagnosis: need for screening colonoscopy and GERD Operation Date: 07/29/23 07:40 Proposed Procedures p 93406 egd [id number] colon G0105 screen colon H risk Z12.11,K21.9(Not Applicable) - Collins Moody MD s Colonoscopy(Not Applicable) - Collins Moody MD Familial anesthetic complications: None Was Beta Dorian taken within 24 hours: N/A Was Clonidine taken within 24 hours: N/A Last intake: Intake Last Liquid Date 07/28/23 Last Liquid Time 22:30 Last Solid Date 07/27/23 Last Solid Time 19:00 Social No alcohol and No tobacco Exam alert, oriented x 3 and clear to auscultation bilaterally Airway Mallampati: Class II Dentition: false (upper dentures) History/ROS No significant history except as noted Pulmonary None reported CV/HEM Coronary Artery Disease, Hypertension and Myocardial Infarction (2020: NSTEMI, stent to left circumflex. No issues since, METS 4+) Previous MARLIN Hepatic None reported GI Gastroesophageal Reflux Disease (well controlled with medication) Metabolic Diabetes Mellitus and Hyperlipidemia [facility] [place] None reported Neuropsych None reported Anesthetic Plan ASA status: 3 Anesthesia: Anesthesia Evaluation and MAC Risk of > 500 ml blood loss (7ml/kg in children): No Medications/Allergies Home Medications Medication Instructions Recorded Confirmed Last Taken Type multivitamin 1 tab PO DAILY 07/03/19 07/27/23 07/27/23 History aspirin 81 mg tablet,delayed 81 mg PO DAILY #30 tabs 11/26/19 07/27/23 07/27/23 Rx release (Adult Aspirin Regimen) syringe with needle 3 mL 23 x 1 #4 ea 12/17/21 07/07/23 Unknown Rx (BD Eclipse Luer-Sanjana) albuterol sulfate 90 mcg/actuation 2 puff inhalation Q6H PRN 02/12/22 07/27/23 Unknown Rx aerosol inhaler shortness of breath or wheezing #8.5 grams liraglutide 0.6 mg/0.1 mL (18 mg/3 1.8 mg (0.3 mL) SUBCUT DAILY #9 mL 08/11/22 07/27/23 07/27/23 Rx mL) subcutaneous pen injector (Victoza 3-Demetrius) atorvastatin 80 mg tablet 80 mg PO DAILY #90 tabs 12/16/22 07/27/23 07/27/23 Rx candesartan 16 mg tablet 16 mg PO DAILY #90 tabs 12/16/22 07/27/23 07/28/23 Rx testosterone cypionate 200 mg/mL 100 mg (0.5 mL) IM .COMPLEX #12 mL 03/18/23 07/27/23 2 Weeks Ago Rx intramuscular oil ~07/13/23 insulin degludec 100 unit/mL (3 35 unit (0.35 mL) SUBCUT DAILY #15 04/30/23 07/29/23 07/28/23 Rx mL) subcutaneous pen (Tresiba mL 16 units FlexTouch U-100 insulin) pantoprazole 40 mg tablet,delayed 40 mg PO BID #60 tabs 06/10/23 07/27/23 07/27/23 Rx release (Protonix) memantine 10 mg tablet 10 mg PO BID memory #60 tabs 07/06/23 07/27/23 07/27/23 Rx chlorpheniramine 4 1 tab PO Q6H PRN allergy symptoms 07/07/23 07/27/23 07/27/23 Rx mg-phenylephrine 10 mg-DM 10 mg #30 tabs tablet (Ed A-Hist DM) metformin 500 mg tablet,extended 2,000 mg PO DAILY 07/27/23 07/27/23 07/27/23 History release 24 hr venlafaxine 150 mg 150 mg PO DAILY 07/27/23 07/27/23 07/28/23 History capsule,extended release 24 hr canagliflozin 300 mg tablet 300 mg PO DAILY 07/29/23 07/29/23 07/28/23 History (Invokana) Allergies Allergy/AdvReac Type Severity Reaction Status Date / Time No Known Allergies Allergy Verified 06/21/23 15:48 Current Medications Generic Name Dose Route Start Last Admin Trade Name Freq PRN Reason Stop Dose Admin Sodium Chloride 1,000 mls @ 30 mls/hr 07/29/23 06:45 07/29/23 07:08 Sodium Chloride 0.9% IV 07/30/23 06:44 30 mls/hr .Q24H CALOS Administration PFSH Anesthesia Medical History Obesity Recent non-ST elevation myocardial infarction (NSTEMI) Presence of stent in left circumflex coronary artery Acute kidney injury Unstable angina NSTEMI (non-ST elevated myocardial infarction) Gastric reflux Mixed hyperlipidemia Anxiety Asthmatic bronchitis Hypertension Controlled type 2 diabetes mellitus with complication, with long-term current use of insulin Vitamin D deficiency Surgical History Status post cardiac catheterization Status post routine circumcision History of tonsillectomy and adenoidectomy History of arthroscopic surgery of shoulder right 3 surgeries left 1 Family History Mother , at age 83 Diabetes Hypertension Heart disease Stroke Dementia Brother Diabetes Father , at age 89 Sepsis CAD (coronary artery disease) Stroke Dementia Denies family history of Clotting disorder Psychiatric illness Chronic kidney disease (CKD) Suicide Anesthesia complication Bleeding disorder Lung disease Cancer Social History Smoking and tobacco/nicotine status: former use of tobacco/nicotine Quit status (tobacco/nicotine): has quit using Year quit tobacco: 1997 Former quit date comment: smoked PPD x 8 yrs Second hand smoke exposure: No Alcohol intake: current Alcohol intake frequency: holidays/special occasions only Substance/Drug Use: current Substance/Drug use frequency: daily Other substance/drug use details: has medical card Adopted: No Caregiver/support person: No Lives independently: Yes Household members: spouse Housing: House Marital status: Number of children: 2 Number of grandchildren: 9 service: No Current occupational status: disabled Pets and animals: Yes Pets & animals: dog(s) Sexually active: Yes Do you think of yourself as: Straight/Heterosexual Current gender identity: Male Data Anesthesia Cardiac Studies: Echocardiogram Ultrasound 11/24/19
[2023-07-29 08:18] VITALS: BP 113/71; PULSE 57; RESP 14; TEMP 36.1; O2SAT 96
[2023-07-29 08:33] VITALS: BP 124/70; PULSE 60; RESP 16; O2SAT 96
--- NOTE | 2023-07-30 08:50 | ANE.PACU2 ---
Inpatient post-anesthesia follow up: Airway intact: Yes Vital signs: Temperature 97 F Pulse Rate 60 Respiratory Rate 16 Blood Pressure 124/70 Pulse Oximetry 96 Oxygen Delivery Me thod Room Air Oxygen Flow Rate Fraction of Inspir ed Oxygen Hydration adequate: Yes Nausea and vomiting: No Pain level: 1 Mental status: Baseline
== END 2023-07-29 08:50 | disposition home or self-care (01) ==
PROVIDERS: PCP Family Medicine; Visit Provider Surgery
PROC: 0DJ08ZZ Inspection of Upper Intestinal Tract, Via Natural or Artificial Opening Endoscopic (ICD-10-PCS; CPT 43235; principal; 2023-07-29 07:40)
PROC: 0DJD8ZZ Inspection of Lower Intestinal Tract, Via Natural or Artificial Opening Endoscopic (ICD-10-PCS; CPT 45378; 2023-07-29 07:40)
DX: Z12.11 Encounter for screening for malignant neoplasm of colon (principal); K29.50 Unspecified chronic gastritis without bleeding; K21.00 Gastro-esophageal reflux disease with esophagitis, without bleeding; D12.3 Benign neoplasm of transverse colon; D12.8 Benign neoplasm of rectum; K57.30 Diverticulosis of large intestine without perforation or abscess without bleeding; Z79.84 Long term (current) use of oral hypoglycemic drugs; I25.2 Old myocardial infarction; E78.2 Mixed hyperlipidemia; F41.9 Anxiety disorder, unspecified; I10 Essential (primary) hypertension; E11.9 Type 2 diabetes mellitus without complications; Z87.891 Personal history of nicotine dependence
CPT/HCPCS: 36416; 43239; 45385; 82962; 88305; 88342; J2704; J7030